=== PATIENT | female | born 1965 | race Caucasian/White ===

== ENCOUNTER 2019-10-23 11:51 | Observation (INO) | payer MEDICARE ==
[~2019-10-23] VITALS: Ht 172.7 cm; Wt 99.6 kg
[~2019-10-23 11:51] MED LIST: AMPH1CAP5 PO; CLON2TAB7 PO; DULO1CAP6 PO; LITH300T2 PO; OXCA300T14; REME15TA2 PO; VALS160T2
[2019-10-23] MEDS ORDERED: NS 1,000 ML IV ONE (12:30)
[2019-10-23 13:13] LABS: BASO # 0.1 10^3/uL (0.0-0.2); BASO % 0.6 % (0.0-1.0); EOS # 0.2 10^3/uL (0.0-0.5); EOS % 2.6 % (0.0-3.0); HEMOGLOBIN 13.5 g/dl (12.0-15.5); LYMPH # 1.8 10^3/uL (1.5-5.0); LYMPH % 19.5 % (24.0-44.0); MEAN CORPUSCULAR HEMOGLOBIN 33.1 pg (27.0-33.0); MEAN CORPUSCULAR HGB CONC 33.8 g/dl (32.0-36.5); MONO # 0.6 10^3/uL (0.0-0.8); MONO % 6.6 % (0.0-5.0); NEUTROPHILS # 6.5 10^3/uL (1.5-8.5); NEUTROPHILS % 70.1 % (36.0-66.0); PLATELET COUNT, AUTOMATED 295 10^3/uL (150-450); RED BLOOD COUNT 4.08 10^6/uL (4.00-5.40); WHITE BLOOD COUNT 9.3 10^3/uL (4.0-10.0)
--- NOTE | 2019-10-23 13:56 | REP ---
CT BRAIN WITHOUT CONTRAST: HISTORY: Altered mental status. No comparison imaging. FINDINGS: Digital preliminary tire repairman radiograph is unremarkable. The bony calvarium is intact. Visualized paranasal sinuses are clear. On soft tissue window settings there is no evidence of intracranial hemorrhage. No acute infarction is appreciated. No mass or midline shift is seen. IMPRESSION: No acute intracranial abnormality. Electronically Signed by Jorden Contreras MD 10/23/2019 02:52 P
[2019-10-23 14:53] LABS: OSMOLALITY SERUM 293 MOSM/KG (275-295)
[2019-10-23 15:00] LABS: ACETAMINOPHEN LEVEL < 2.0 UG/ML (10.0-30.0); ALBUMIN 3.5 GM/DL (3.2-5.2); ALT/SGPT 48 U/L (12-78); BILIRUBIN,DIRECT < 0.1 MG/DL (0.0-0.2); BILIRUBIN,TOTAL 0.2 MG/DL (0.2-1.0); BLOOD UREA NITROGEN 9 MG/DL (7-18); CALCIUM LEVEL 8.7 MG/DL (8.5-10.1); CARBON DIOXIDE LEVEL 28 MEQ/L (21-32); CHLORIDE LEVEL 108 MEQ/L (98-107); CK-MB VALUE MASS 1.5 NG/ML (<3.6); CPK CREATINE PHOSPHOKINASE 317 U/L (26-192); CREATININE FOR GFR 0.78 MG/DL (0.55-1.30); ETHYL ALCOHOL (ETHANOL) < 0.003 % (0.000-0.010); GLOMERULAR FILTRATION RATE > 60.0 (>51); GLUCOSE, FASTING 81 MG/DL (70-100); MB/CK RELATIVE INDEX 0.47 (< OR =4); POTASSIUM SERUM 3.9 MEQ/L (3.5-5.1); SALICYLATE LEVEL < 1.7 MG/DL (5.0-30.0); SODIUM LEVEL 139 MEQ/L (136-145); TOTAL PROTEIN 6.8 GM/DL (6.4-8.2); TROPONIN I < 0.02 NG/ML (< 0.10)
[2019-10-23 16:17] LABS: AMPHETAMINES LEVEL URINE POSITIVE (NEGATIVE); BARBITURATES URINE NEGATIVE (NEGATIVE); BENZODIAZEPINES URINE NEGATIVE (NEGATIVE); CANNABINOIDS URINE NEGATIVE (NEGATIVE); COCAINE METABOLITE URINE NEGATIVE (NEGATIVE); METHADONE URINE NEGATIVE (NEGATIVE); OPIATES URINE NEGATIVE (NEGATIVE); PHENCYCLIDINE URINE NEGATIVE (NEGATIVE)
[2019-10-23] MEDS ORDERED: TRAZ-252 PO (16:29)
[2019-10-23] MEDS ORDERED: ADDE30CA3 PO (16:29)
[2019-10-23] MEDS ORDERED: DIOV320T6 PO (16:29)
[2019-10-23] MEDS ORDERED: cefTRIAXone SOD 2 GM in D5W MINI-BAG PLUS 50 ML IV ONE ×2 (17:00)
[2019-10-23] MEDS ORDERED: cefTRIAXone SOD 2 GM in D5W MINI-BAG PLUS 50 ML IV SCH (17:00)
[2019-10-23 17:50] VITALS: BP 162/119
[2019-10-23] MEDS: ENOXAPARIN 40MG/0.4ML SYRINGE (J1650 PER 10MG) SC SCH (18:32)
--- NOTE | 2019-10-23 19:42 | HPEPDOC ---
[facility] Medical History & Physical Date of Admission Oct 23, 2019 Date of Service: Oct 23, 2019 Attending Physician: DIONTE BLACKMAN MD History and Physical CHIEF COMPLAINT: Dizziness HISTORY OF PRESENT ILLNESS: 54 y.o female w/ PMH of Bipolar disorder, multiple suicide attempts and HTN presents with dizziness & difficulty with word finding. Patient was sent her by her Psychiatrist whom she saw earlier today and informed of her symptoms. She has been having these symptoms for roughly 8 weeks, without change and intermittent. She is currently asymptomatic at the time of my examination. She reports speech issues concerning for possible broca's aphasia but she has contradicted herself multiple times during my examination which suggests possible psychiatric component. She reports that her dizziness makes her "roll across the wall". She is unable to explain what she means by that and has no other way of describing her symptom. She is otherwise without complaints, denies SOB, CP, N/V/D or abdominal pain. 10 point review of system is negative except for above. PAST MEDICAL HISTORY: 1. Bipolar disorder 2. Suicide attempt x3 3. HTN PAST SURGICAL HISTORY: 1. b/l ovaries & fallopian tube removal SOCIAL HISTORY: never smoker previous alcohol use denies drug use FAMILY HISTORY: Father had DM ALLERGIES: Please see below. HOME MEDICATIONS: Please see below. PHYSICAL EXAMINATION: VITAL SIGNS: See below GENERAL APPEARANCE: No distress HEENT: Moist mucus membranes CARDIOVASCULAR: S1, S2, no murmurs LUNGS: clear to auscultation ABDOMEN: soft, non-tender, non-distended, +BS EXTREMITIES: ROM intact NEUROLOGICAL: No focal deficits appreciated PSYCHIATRIC: Calm LABORATORY DATA: See below. IMAGING: CT head negative for acute pathology MICROBIOLOGY: Please see below. ASSESSMENT: 54 y.o female w/ significant psychiatric history presenting with vague/bizarre symptoms being admitted for UTI & r/o neurological pathology. PLAN: 1. Dizziness/difficulty word finding/bizarre behavior - based on history & presentation I believe this is mostly related to her psychiatric history, CT head negative, will check MRI brain. 2. Possible UTI - ?symptoms related to UTI, ceftriaxone, culture pending. 3. HTN - continue Valsartan & HCTZ 4. Bipolar disorder - continue home regimen 5. ADHD - continue Adderall DVT Prophylaxis - Lovenox GI prophylaxis - not needed Vital Signs Vital Signs Date Time Temp Pulse Resp B/P (MAP) Pulse Ox O2 Delivery O2 Flow Rate FiO2 10/23/19 17:50 97.6 91 18 162/119 (133) 99 Room Air Laboratory Data Labs 24H Laboratory Tests 2 10/23/19 12:29: Urine Color KADE, Urine Appearance TURBIDH, Urine pH 7.0, Urine Specific [place] 1.015, Urine Protein 1+H, Urine Glucose (UA) NEGATIVE, Urine Ketones NEGATIVE, Urine Blood 1+H, Urine Nitrite POSITIVEH, Urine Bilirubin NEGATIVE, Urine Urobilinogen 4.0H, Urine Leukocyte Esterase 2+H, Urine WBC (Auto) TNTCH, Urine RBC (Auto) 8H, Urine Hyaline Casts (Auto) 0, Urine Bacteria (Auto) 2+H, Urine Squamous Epithelial Cells 71, Urine Renal Epithelial Cells 2, Urine Mucus (Auto) LARGE, Urine Sperm (Auto) 10/23/19 12:33: Urine Opiates Screen NEGATIVE, Urine Methadone Screen NEGATIVE, Urine Barbiturates Screen NEGATIVE, Urine Phencyclidine Screen NEGATIVE, Urine Amphetamines Screen POSITIVEH, Urine Benzodiazepines Screen NEGATIVE, Urine Cocaine Metabolite Screen NEGATIVE, Urine Cannabinoids Screen NEGATIVE 10/23/19 12:43: Immature Granulocyte % (Auto) 0.6, Neutrophils (%) (Auto) 70.1H, Lymphocytes (%) (Auto) 19.5L, Monocytes (%) (Auto) 6.6H, Eosinophils (%) (Auto) 2.6, Basophils (%) (Auto) 0.6, Neutrophils # (Auto) 6.5, Lymphocytes # (Auto) 1.8, Monocytes # (Auto) 0.6, Eosinophils # (Auto) 0.2, Basophils # (Auto) 0.1, Nucleated Red Blood Cells % (auto) 0.0, Lactic Acid Level 1.9, Ammonia 32 10/23/19 14:18: Anion Gap 3L, Glomerular Filtration Rate > 60.0, Osmolality 293, Calcium Level 8.7, Total Bilirubin 0.2, Direct Bilirubin < 0.1, Aspartate Amino Transf (AST/SGOT) 30, Alanine Aminotransferase (ALT/SGPT) 48, Alkaline Phosphatase 109, Total Creatine Kinase 317H, Creatine Kinase MB 1.5, Creatine Kinase MB Relative Index 0.47, Troponin I < 0.02, Total Protein 6.8, Albumin 3.5, Albumin/Globulin Ratio 1.06, Thyroid Stimulating Hormone (TSH) 2.480, Salicylates Level < 1.7L, Acetaminophen Level < 2.0L, [place] Level 0.70, Ethyl Alcohol Level < 0.003 CBC/BMP Laboratory Tests 10/23/19 12:43 10/23/19 14:18 Microbiology Microbiology 10/23/19 Urine Culture, Received Pending Home Medications Scheduled Clonazepam (Clonazepam) 2 Mg Tablet, 2 MG PO QHS Dextroamphetamine/Amphetamine (Adderall Xr 30 mg Capsule) 30 Mg Cap.er.24h, 30 MG PO DAILY Duloxetine Hcl (Duloxetine HCl) 60 Mg Capsule.dr, 120 MG PO DAILY [place] Carbonate ([place] Carbonate) 300 Mg Tablet, 300 MG PO BID Trazodone HCl (Trazodone HCl) 50 Mg Tablet, 100 MG PO QHS Valsartan/Hydrochlorothiazide (Diovan Hct 320-25 mg Tablet) 1 Each Tablet, 1 TAB PO DAILY Allergies Coded Allergies: No Known Allergies (Unverified , 05/30/19) A-FIB/CHADSVASC A-FIB History Current/History of A-Fib/PAF?: No DIONTE BLACKMAN MD Oct 23, 2019 19:42
[2019-10-23] MEDS: traZODone 50 MG TAB PO SCH (20:43)
[2019-10-23] MEDS: clonazePAM 1 MG TAB PO SCH (20:43)
[2019-10-23] MEDS: LITHIUM CARBONATE 300 MG CAP PO SCH (20:43)
[2019-10-23 22:00] VITALS: BP 148/106
--- NOTE | 2019-10-23 22:00 | REPVR ---
PROCEDURE INFORMATION: Exam: MR Head Without Contrast Exam date and time: 10/23/2019 7:43 PM Age: 54 years old Clinical indication: Altered mental status/memory loss and dizziness; Other: Transient alertness; Additional info: Dizziness/difficulty with word finding TECHNIQUE: Imaging protocol: MR of the head without contrast. COMPARISON: CT Head without contrast 10/23/2019 12:35 PM FINDINGS: Brain: There is a small subtle focus of restricted diffusion with associated increased T2 and FLAIR signal in the periventricular white matter adjacent to the atrium of the right lateral ventricle and in the subcortical white matter of the posterior aspect of the right superior temporal gyrus, which is compatible with an acute or subacute infarct (images 18-19 of the axial DWI series 304). There is no intracranial hemorrhage, mass, mass effect, or herniation. The basal ganglia, thalami, and cerebellum are normal in appearance. Brainstem: Normal. Midline shift: There is no midline shift. Ventricles: Normal. No ventriculomegaly. Bones/joints: Unremarkable. Soft tissues: Unremarkable. Sinuses: The sinuses are well-aerated. No air-fluid levels. Mastoid air cells: The mastoid air cells are well-aerated. No mastoid effusion. Orbits: Unremarkable. IMPRESSION: Acute or subacute infarct involving the periventricular white matter adjacent to the atrium of the right lateral ventricle and in the subcortical white matter of the posterior aspect of the right superior temporal gyrus. Electronically signed by: Genaro Reinoso On 10/23/2019 21:59:47 PM
--- NOTE | 2019-10-23 22:13 | IPNPDOC ---
Text Note Date of Service The patient was seen on 10/23/19. NOTE I was informed by by phone that this patient has a subacute CVA w/o h emorrhage and is likely out of the tPA window. Per 's note the patient has been feeling dizzy for about 8 weeks. I will order the stroke order set including telemetry, ASA, PT OT SPL, neuroch ecks, lipid panel A1C, and inform Dr Lundberg that we have placed a consult for him to evaluate the patient tomorrow. VS,Fishbone, I+O VS, Fishbone, I+O Laboratory Tests 10/23/19 12:43 10/23/19 14:18 Vital Signs Date Time Temp Pulse Resp B/P (MAP) Pulse Ox O2 Delivery O2 Flow Rate FiO2 10/23/19 17:50 97.6 91 18 162/119 (133) 99 Room Air KENYA BETH MD Oct 23, 2019 22:13
[2019-10-23] MEDS ORDERED: ASPIRIN 81 MG CHEW TABLET PO ONE (23:00)
[2019-10-23] MEDS: ATORVASTATIN 20 MG TAB PO SCH (23:01)
[2019-10-23] MEDS: ACETAMINOPHEN TAB 650MG DOSE (2X325MG) PO PRN (23:01)
[2019-10-24] MEDS: ACETAMINOPHEN TAB 650MG DOSE (2X325MG) PO PRN ×3 (03:29→20:20)
[2019-10-24 05:40] VITALS: BP 148/100
[2019-10-24 05:59] LABS: HEMATOCRIT 37.3 % (36.0-47.0); HEMOGLOBIN 12.6 g/dl (12.0-15.5); MEAN CORPUSCULAR HEMOGLOBIN 32.7 pg (27.0-33.0); MEAN CORPUSCULAR HGB CONC 33.8 g/dl (32.0-36.5); MEAN CORPUSCULAR VOLUME 96.9 fl (80.0-96.0); PLATELET COUNT, AUTOMATED 271 10^3/uL (150-450); RED BLOOD COUNT 3.85 10^6/uL (4.00-5.40); WHITE BLOOD COUNT 9.3 10^3/uL (4.0-10.0)
[2019-10-24 06:23] LABS: HEMOGLOBIN A1c 5.4 %
[2019-10-24 06:34] LABS: ALBUMIN 3.2 GM/DL (3.2-5.2); ALT/SGPT 40 U/L (12-78); BILIRUBIN,TOTAL 0.4 MG/DL (0.2-1.0); BLOOD UREA NITROGEN 9 MG/DL (7-18); CALCIUM LEVEL 8.5 MG/DL (8.5-10.1); CARBON DIOXIDE LEVEL 27 MEQ/L (21-32); CHLORIDE LEVEL 109 MEQ/L (98-107); CHOLESTEROL LEVEL 184 MG/DL (<200); CREATININE FOR GFR 0.91 MG/DL (0.55-1.30); GLOMERULAR FILTRATION RATE > 60.0 (>51); GLUCOSE, FASTING 101 MG/DL (70-100); HDL CHOLESTEROL 32 MG/DL (>40); LDL CHOLESTEROL 105 MG/DL (<100); NON-HDL-C 152 MG/DL; POTASSIUM SERUM 3.5 MEQ/L (3.5-5.1); SODIUM LEVEL 139 MEQ/L (136-145); TRIGLYCERIDES LEVEL 236 MG/DL (<150)
[2019-10-24] MEDS: hydroCHLOROthiazide 25 MG TAB PO SCH (08:38)
[2019-10-24] MEDS: VALSARTAN 80 MG TAB (DIOVAN) PO SCH (08:38)
[2019-10-24] MEDS: LITHIUM CARBONATE 300 MG CAP PO SCH ×2 (08:38→20:19)
[2019-10-24] MEDS: DULoxetine 30 MG CAP (CYMBALTA) PO SCH (08:38)
[2019-10-24] MEDS: cefTRIAXone SOD 2 GM in D5W MINI-BAG PLUS 50 ML IV SCH (08:39)
[2019-10-24] MEDS: ASPIRIN 81 MG CHEW TABLET PO SCH (08:39)
[2019-10-24] MEDS: ENOXAPARIN 40MG/0.4ML SYRINGE (J1650 PER 10MG) SC SCH (08:39)
[2019-10-24] MEDS ORDERED: AMPHETAMINE/DEXTROAMPHETAMINE 5 MG *ER* CAPSULE (ADDERALL XR) PO SCH (09:00)
--- NOTE | 2019-10-24 10:29 | ECGEPIP ---
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
[2019-10-24 14:00] VITALS: BP 155/105
--- NOTE | 2019-10-24 19:15 | ECHO ---
DATE OF PROCEDURE: 10/24/2019 AGE: 54 GENDER: Female HEIGHT: 68 inches WEIGHT: 220 pounds BODY SURFACE AREA: 2.13 m2 PATIENT LOCATION: Inpatient, [address] [place] [address], room 4231 REFERRING PHYSICIAN: Dr. Alexa Combs. INDICATION: Cerebrovascular accident. ? Cardiac source of embolic material. 2-D MEASUREMENTS: RV: 2.3 cm LV: 4.7 cm Septum: 1.1 cm Posterior wall: 1.1 cm Aortic root: 3.2 cm LA: 3.4 cm LVEF: 75% DOPPLER MEASUREMENTS: AV: 1.34 m/s LVOT: 1.01 m/s LVOT diameter: 1.8 cm MV-E: 88, A: 102, EA ratio: 0.9 Early mitral deceleration time: 151 ms E prime medial: 7 A prime medial: 10 E prime lateral: 9.3 Average E/E prime ratio: 10.8/PCWP: 15.3 mmHg PV: 0.8 m/s Pulmonary artery acceleration time: 137 PASP: 17 RVSP: 30 mmHg IVC: 1.7 cm COMMENTS Normal sinus rhythm without intraventricular conduction disturbance. M-mode and two-dimensional echocardiography was performed with pulsed, continuous wave, color flow and tissue Doppler studies. Normal left ventricular size, wall thickness and hyperkinetic wall motion. Left atrial size upper limits of normal with grade 2 LV diastolic dysfunction and current estimated mean left atrial pressure upper limits of normal to slightly elevated. Normal right heart chamber sizes and motion with Doppler evidence of pulmonary arterial pressure upper limits of normal to borderline increased. Normal IVC size and collapse against an elevated central venous pressure. Normal aortic dimensions. Normal-appearing aortic valve with normal cusp separation and a trace aortic insufficiency. Normal-appearing mitral valvular apparatus and leaflet excursion with no posterior systolic buckling. Mild mitral insufficiency. Normal appearing tricuspid valve with mild insufficiency. No apparent intracardiac mass or pericardial effusion. A saline contrast bubble study was performed with good opacification of the right heart chambers without evidence of right to left shunting.
[2019-10-24] MEDS: traZODone 50 MG TAB PO SCH (20:19)
[2019-10-24] MEDS: ATORVASTATIN 20 MG TAB PO SCH (20:19)
[2019-10-24] MEDS: clonazePAM 1 MG TAB PO SCH (20:19)
--- NOTE | 2019-10-24 21:10 | IPNPDOC ---
Date Seen The patient was seen on 10/24/19. Progress Note HISTORY OF PRESENT ILLNESS: 54 y.o female w/ PMH of Bipolar disorder, multiple suicide attempts and HTN presents with dizziness & difficulty with word finding. MRI overnight showed acute/subacute CVA in R periventricular white matter. No acute events overnight, comfortable in bed, no complaints at this time. 10 point review of system is negative except for above. PHYSICAL EXAMINATION: VITAL SIGNS: See below GENERAL APPEARANCE: No distress HEENT: Moist mucus membranes CARDIOVASCULAR: S1, S2, no murmurs LUNGS: clear to auscultation ABDOMEN: soft, non-tender, non-distended, +BS EXTREMITIES: ROM intact NEUROLOGICAL: No focal deficits appreciated, continues to have difficulty w/ word finding PSYCHIATRIC: Calm LABORATORY DATA: See below. ASSESSMENT: 54 y.o female w/ significant psychiatric history presenting with vague/bizarre symptoms admitted for CVA. PLAN: 1. CVA: MRI showing acute/subacute CVA in the R periventricular white matter, continue Aspirin/statin/PT/OT, CVA workup has been ordered. 2. Possible UTI - continue ceftriaxone, culture pending. 3. HTN - continue Valsartan & HCTZ 4. Bipolar disorder - continue home regimen DVT Prophylaxis - Lovenox GI prophylaxis - not needed VS, I&O, 24H, Fishbone Vital Signs/I&O Vital Signs Date Time Temp Pulse Resp B/P (MAP) Pulse Ox O2 Delivery O2 Flow Rate FiO2 10/24/19 14:00 99.4 102 18 155/105 (122) 96 Room Air I&O- Last 24 Hours up to 6 AM0 10/24/19 06:00 Intake Total 1710 ml Output Total 650 ml Balance 1060 ml Laboratory Data 24H LABS Laboratory Tests 2 10/24/19 05:20: Nucleated Red Blood Cells % (auto) 0.0, Anion Gap 3L, Glomerular Filtration Rate > 60.0, Estimated Mean Plasma Glucose 108, Hemoglobin A1c 5.4, Calcium Level 8.5, Magnesium Level 2.0, Total Bilirubin 0.4#, Aspartate Amino Transf (AST/SGOT) 26, Alanine Aminotransferase (ALT/SGPT) 40, Alkaline Phosphatase 96, Total Protein 6.0L, Albumin 3.2, Albumin/Globulin Ratio 1.14, Triglycerides Level 236H, Total Cholesterol 184, LDL Cholesterol 105H, Non-HDL Cholesterol (LDL + VLDL) 152, Total HDL Cholesterol 32L, Cholesterol/HDL Ratio 5.750H CBC/BMP Laboratory Tests 10/24/19 05:20 Microbiology Microbiology 10/23/19 Urine Culture, Received Pending DIONTE BLACKMAN MD Oct 24, 2019 21:10
[2019-10-24] MEDS ORDERED: POTASSIUM CHLORIDE 10 MEQ SR TABLET PO ONE (21:15)
[2019-10-25 02:00] VITALS: BP 136/74
[2019-10-25 06:00] VITALS: BP 126/85
[2019-10-25 08:50] VITALS: BP 144/97
[2019-10-25] MEDS: VALSARTAN 80 MG TAB (DIOVAN) PO SCH (08:50)
[2019-10-25] MEDS: hydroCHLOROthiazide 25 MG TAB PO SCH (08:51)
[2019-10-25] MEDS: ASPIRIN 81 MG CHEW TABLET PO SCH (08:51)
[2019-10-25] MEDS: DULoxetine 30 MG CAP (CYMBALTA) PO SCH (08:51)
[2019-10-25] MEDS: LITHIUM CARBONATE 300 MG CAP PO SCH (08:51)
[2019-10-25] MEDS: ENOXAPARIN 40MG/0.4ML SYRINGE (J1650 PER 10MG) SC SCH (08:52)
[2019-10-25] MEDS: cefTRIAXone SOD 2 GM in D5W MINI-BAG PLUS 50 ML IV SCH (08:52)
[2019-10-25] MEDS ORDERED: ATOR40TA75 PO (11:19)
[2019-10-25] MEDS ORDERED: ASPI81CH8 PO (11:19)
[2019-10-25] MEDS ORDERED: ATORVASTATIN 20 MG TAB PO SCH (21:00)
--- NOTE | 2019-10-26 15:57 | DS.PDOC ---
Discharge Summary General Date of Admission Oct 23, 2019 at 11:52 Date of Discharge 10/25/19 Attending Physician: DIONTE BLACKMAN MD Discharge Summary PROCEDURES PERFORMED DURING STAY: None. ADMITTING DIAGNOSES: 1. Acute/subacute CVA, hypertension. DISCHARGE DIAGNOSES: 1. Acute/subacute CVA, hypertension. COMPLICATIONS/CHIEF COMPLAINT: Altered Mental Status. HISTORY OF PRESENT ILLNESS: 54-year-old female with past medical history of hypertension and multiple psychiatric illnesses was admitted for dizziness and difficulty with word finding. MRI showed acute/subacute CVA in the periventricular white matter. Patient was started on aspirin and high-dose statin. Remainder of CVA workup was negative. Patient was evaluated by physical therapy and cleared for discharge home. Patient is clinically stable for discharge at this time. HOSPITAL COURSE: As above. DISCHARGE MEDICATIONS: Please see below. ALLERGIES: Please see below. PHYSICAL EXAMINATION: VITAL SIGNS: See below GENERAL APPEARANCE: No distress HEENT: Moist mucus membranes CARDIOVASCULAR: S1, S2, no murmurs LUNGS: clear to auscultation ABDOMEN: soft, non-tender, non-distended, +BS EXTREMITIES: ROM intact NEUROLOGICAL: No focal deficits appreciated, continues to have difficulty w/ word finding PSYCHIATRIC: Calm LABORATORY DATA: Please see below. IMAGING: MRI showed acute/subacute periventricular CVA PROGNOSIS: Fair ACTIVITY: As tolerated. DIET: Cardiac DISCHARGE PLAN: Follow with PCP and neurologist within 1-2 weeks DISPOSITION: 01 Home, Self-Care. DISCHARGE INSTRUCTIONS: 1. As above. DISCHARGE CONDITION: Stable. TIME SPENT ON DISCHARGE: Greater than 25 minutes. Vital Signs/I&Os Vital Signs Date Time Temp Pulse Resp B/P (MAP) Pulse Ox O2 Delivery O2 Flow Rate FiO2 10/25/19 08:50 144/97 10/25/19 06:00 98.0 76 18 93 Room Air I&O- Last 24 Hours up to 6 AM 10/26/19 06:00 Intake Total 600 ml Output Total 650 ml Balance -50 ml Microbiology Microbiology 10/23/19 Urine Culture - Final, Complete Strep Alactolyticus (Viridans) Discharge Medications Scheduled Aspirin (Children's Aspirin) 81 Mg Tab.chew, 81 MG PO DAILY Atorvastatin Calcium (Atorvastatin Calcium) 40 Mg Tablet, 1 TAB PO DAILY Clonazepam (Clonazepam) 2 Mg Tablet, 2 MG PO QHS, (Reported) Duloxetine Hcl (Duloxetine HCl) 60 Mg Capsule.dr, 120 MG PO DAILY, (Reported) [place] Carbonate ([place] Carbonate) 300 Mg Tablet, 300 MG PO BID, (Reported) Trazodone HCl (Trazodone HCl) 50 Mg Tablet, 100 MG PO QHS, (Reported) Valsartan/Hydrochlorothiazide (Diovan Hct 320-25 mg Tablet) 1 Each Tablet, 1 TAB PO DAILY, (Reported) Allergies Coded Allergies: No Known Allergies (Unverified , 05/30/19) DIONTE BLACKMAN MD Oct 26, 2019 15:57
== END 2019-10-25 13:13 | disposition home or self-care (01) ==
LOC: M ED 11:51 → M ED INP 11:52 → ENRESERV 17:05 → M MSPAV 17:55
PROVIDERS: ADMIT Internal Medicine; ATTEND Internal Medicine
DX: I63.9 Cerebral infarction, unspecified (principal); N39.0 Urinary tract infection, site not specified; I10 Essential (primary) hypertension; F31.9 Bipolar disorder, unspecified; F90.9 Attention-deficit hyperactivity disorder, unspecified type; R42 Dizziness and giddiness; Z79.899 Other long term (current) drug therapy
CPT/HCPCS: 36415; 70450; 70551; 80048; 80053; 80061; 80076; 80178; 80183; 80307; 81001; 82140; 82550; 82553; 83036; 83605; 83735; 83930; 84443; 84484; 85025; 85027; 87088; 87186; 92507; 92523; 93005; 93041; 93306; 94760; 96361; 96365; 96366; 96372; 97116; 97161; 97165; 97530; 97535; 99285; G0378; G0480; J0696; J1650

== ENCOUNTER 2019-11-30 13:15 | Observation (INO) | payer MEDICARE ==
[~2019-11-30] VITALS: Ht 172.7 cm; Wt 93.8 kg
[~2019-11-30 13:15] MED LIST changes: +ADDE30CA3 PO; +ASPI81CH8 PO; +ATOR40TA75 PO; +DIOV320T6 PO; +TRAZ-252 PO
[2019-11-30 14:55] LABS: HEMATOCRIT 41.5 % (36.0-47.0); HEMOGLOBIN 13.7 g/dl (12.0-15.5); MEAN CORPUSCULAR HEMOGLOBIN 32.3 pg (27.0-33.0); MEAN CORPUSCULAR VOLUME 97.9 fl (80.0-96.0); PLATELET COUNT, AUTOMATED 317 10^3/uL (150-450); RED BLOOD COUNT 4.24 10^6/uL (4.00-5.40); WHITE BLOOD COUNT 12.8 10^3/uL (4.0-10.0)
[2019-11-30] MEDS ORDERED: hydrALAZINE 20MG/ML 1ML VIAL (J0360 PER 20MG) IV ONE (15:00)
--- NOTE | 2019-11-30 15:13 | REP ---
CT BRAIN WITHOUT CONTRAST: HISTORY: Altered mental status. Comparison brain MRI study, October 23, 2019. Comparison CT study of the brain is from October 23, [address] FINDINGS: Filler Blender view is unremarkable. The bony calvarium remains intact. Visualized paranasal sinuses are clear. There is minimal vascular calcification in the left internal carotid artery at the skull base. On soft tissue window settings, there is no evidence of intracranial hemorrhage. No acute infarct is apparent by CT. No extra-axial fluid collection, mass, or midline shift is seen. IMPRESSION: No acute intracranial abnormality seen. No change from October 23, 2019 prior study. Electronically Signed by Jorden Contreras MD 11/30/2019 05:10 P
[2019-11-30 15:25] LABS: AMPHETAMINES LEVEL URINE NEGATIVE (NEGATIVE); BARBITURATES URINE NEGATIVE (NEGATIVE); BENZODIAZEPINES URINE NEGATIVE (NEGATIVE); CANNABINOIDS URINE NEGATIVE (NEGATIVE); COCAINE METABOLITE URINE NEGATIVE (NEGATIVE); METHADONE URINE NEGATIVE (NEGATIVE); OPIATES URINE NEGATIVE (NEGATIVE); PHENCYCLIDINE URINE NEGATIVE (NEGATIVE)
[2019-11-30 15:49] LABS: ACETAMINOPHEN LEVEL < 2.0 UG/ML (10.0-30.0); ALBUMIN 4.2 GM/DL (3.2-5.2); ALT/SGPT 65 U/L (12-78); BILIRUBIN,DIRECT 0.2 MG/DL (0.0-0.2); BILIRUBIN,TOTAL 0.7 MG/DL (0.2-1.0); BLOOD UREA NITROGEN 10 MG/DL (7-18); CARBON DIOXIDE LEVEL 27 MEQ/L (21-32); CHLORIDE LEVEL 102 MEQ/L (98-107); CPK CREATINE PHOSPHOKINASE 82 U/L (26-192); CREATININE FOR GFR 0.99 MG/DL (0.55-1.30); ETHYL ALCOHOL (ETHANOL) < 0.003 % (0.000-0.010); GLOMERULAR FILTRATION RATE > 60.0 (>51); GLUCOSE, FASTING 104 MG/DL (70-100); POTASSIUM SERUM 3.6 MEQ/L (3.5-5.1); SALICYLATE LEVEL < 1.7 MG/DL (5.0-30.0); SODIUM LEVEL 138 MEQ/L (136-145); TOTAL PROTEIN 7.9 GM/DL (6.4-8.2)
[2019-11-30] MEDS ORDERED: HALOPERIDOL 5MG/ML VIAL (J1630 PER 1) IV PRN (18:00)
[2019-11-30] MEDS ORDERED: LORazepam 2 MG/ML VIAL (J2060) IV PRN (18:00)
[2019-11-30] MEDS ORDERED: MAALOX 30 ML SUSP *UDC PO PRN (18:00)
[2019-11-30] MEDS ORDERED: MOM 30ML SUSPENSION UDC PO PRN (18:00)
--- NOTE | 2019-11-30 18:01 | HPEPDOC ---
General Date of Admission Date of Service: November 30, 2019 Chief Complaint The patient is a 54-year-old female admitted with a reason for visit of MHE. Source: Patient Exam Limitations: Other (altered mental status) Timing/Duration: Other (, unknown) Severity: Other (, unknown) Associated Symptoms: Other (my relatives are laughing at me, had a horrible day, also saw shadows) History of Present Illness This is a 54 years old white female with past medical history of bipolar disorder, history of suicidal attempts in the past, hypertension, was brought in by her niece and drop in the ER. According to patient, she is been seeing visual hallucination-like shadows 3 times a day since last few days. Also of note is that her family was less than at her making fun of her and it hurt and she didn't had a good day, so she decided to come here. When directly asked, she is not suicidal, she is not homicidal. She is not agitated but she is very cooperative Home Medications Scheduled Aspirin (Children's Aspirin) 81 Mg Tab.chew, 81 MG PO DAILY Atorvastatin Calcium (Atorvastatin Calcium) 40 Mg Tablet, 1 TAB PO DAILY Clonazepam (Clonazepam) 2 Mg Tablet, 2 MG PO QHS, (Reported) Duloxetine Hcl (Duloxetine HCl) 60 Mg Capsule.dr, 120 MG PO DAILY, (Reported) [place] Carbonate ([place] Carbonate) 300 Mg Tablet, 300 MG PO BID, (Reported) Trazodone HCl (Trazodone HCl) 50 Mg Tablet, 100 MG PO QHS, (Reported) Valsartan/Hydrochlorothiazide (Diovan Hct 320-25 mg Tablet) 1 Each Tablet, 1 TAB PO DAILY, (Reported) Allergies Coded Allergies: No Known Allergies (Unverified , 05/30/19) Past Medical History Medical History Bipolar disorder, suicidal attempts 3. Hypertension Surgical History Bilateral ovaries and fallopian tube removal Family History Father had diabetes mellitus Social History * Smoker: Denies Alcohol: Denies Drugs: denies A-FIB/CHADSVASC A-FIB History Current/History of A-Fib/PAF?: No Review of Systems Constitutional: Reports: Other (emotionally hurt ,unable to explain her symptoms) Eyes: Denies: Pain, Vision change, Conjunctivae inflammation, Eyelid inflammation, Redness, Other ENT: Denies: Head Aches, Ear Pain, Dysphagia, Sinus Congestion, Post Nasal Drip, Sore Throat, Epistaxis, Other Symptoms Skin: Denies: Rash, Lesions, Jaundice, Bruising, Itching, Dry, Breakdown, Nail Changes, Other Pulmonary: Denies: Dyspnea, Cough, Pleuritic Chest Pain, Other Symptoms Cardiovascular: Denies: Chest Pain, Palpitations, Orthopnea, Paroxysmal Noc. Dyspnea, Edema, Lt Headedness, Other Symptoms Gastrointestinal: Denies: Nausea, Vomiting, Abdominal Pain, Diarrhea, Constipation, Melena, Hematochezia, Other Symptoms Genitourinary: Denies: Dysuria, Frequency, Incontinence, Hematuria, Retention, Other Symptoms Endocrine: Denies: Polydipsia, Polyphagia, Polyuria, Heat Intolerance, Cold Intolerance, Other Endocrine Sx Musculoskeletal: Denies: Neck Pain, Back Pain, Shoulder Pain, Arm Pain, Hand Pain, Leg Pain, Foot Pain, Joint Pain, Muscle Pain, Spasms, Other Symptoms Neurological: Denies: Weakness, Numbness, Incoordination, Change in speech, Confusion, Seizures, Other Symptoms Psych: Denies: Mood Normal, Anxiety, Depression, Memory Issues, Thoughts of Self Harm, Anger, Thoughts of Harming Other, Other Psych Physical Examination General Exam: Positive: Alert, Other (, oriented 2, flight of ideas noted) Eye Exam: Positive: PERRLA ENT Exam: Positive: Atraumatic, Mucous membr. moist/pink Neck Exam: Positive: Supple Chest Exam: Positive: Clear to auscultation, Normal air movement Heart Exam: Positive: Rate Normal, Normal S1, Normal S2 Abdomen Exam: Positive: Normal bowel sounds, Soft Extremity Exam: Positive: Normal pulses Skin Exam: Positive: Nl turgor and temperature Neuro Exam: Positive: Strength at 5/5 X4 ext, Cranial Nerves 3-12 NL Psych Exam: Positive: Mood NL Vital Signs Vital Signs Date Time Temp Pulse Resp B/P (MAP) Pulse Ox O2 Delivery O2 Flow Rate FiO2 11/30/19 17:45 98.2 92 18 144/76 (98) 100 Room Air Laboratory Data Labs 24H Laboratory Tests 2 11/30/19 14:15: Nucleated Red Blood Cells % (auto) 0.0, Anion Gap 9, Glomerular Filtration Rate > 60.0, Calcium Level 9.0, Total Bilirubin 0.7, Direct Bilirubin 0.2, Aspartate Amino Transf (AST/SGOT) 21, Alanine Aminotransferase (ALT/SGPT) 65, Alkaline Phosphatase 172H, Ammonia < 10, Total Creatine Kinase 82, Total Protein 7.9, Albumin 4.2, Albumin/Globulin Ratio 1.1L, Thyroid Stimulating Hormone (TSH) 2.700, Salicylates Level < 1.7L, Acetaminophen Level < 2.0L, [place] Level 0.67, Ethyl Alcohol Level < 0.003 11/30/19 14:16: Urine Opiates Screen NEGATIVE, Urine Methadone Screen NEGATIVE, Urine Barbiturates Screen NEGATIVE, Urine Phencyclidine Screen NEGATIVE, Urine Amphetamines Screen NEGATIVE, Urine Benzodiazepines Screen NEGATIVE, Urine Cocaine Metabolite Screen NEGATIVE, Urine Cannabinoids Screen NEGATIVE CBC/BMP Laboratory Tests 11/30/19 14:15 Problems (1) Altered mental status Status: Acute Problem Text: 54 years old lady, recently was admitted on 10/23/2019 when she was diagnosed with acute or subacute infarct and periventricular white matter adjacent to the atrium of fourth ventricle and subcortical white matter.at Right superior temporal gyrus. Patient also had echocardiogram done which was within normal limit with the EF of 75%. CT of the head essentially was negative on the first admission Patient presented again with altered mentation, visual hallucination, flight of ideas, most likely the altered mental status is probably secondary to her un ember control psychiatric conditions, but cannot rule out a second CVA, but according to patient, she is been taking her medicines regularly Admit patient to observation to medical floor with telemetry MRI of brain, MRA of brain and carotids Continue aspirin and Lipitor Continue All other home meds Ativan and Haldol when necessary for agitation One-to-one watch . We will request psychiatric consultation in a.m. if the MRIs are negative DVT prophylaxis with Lovenox Diet regular Activity as tolerated (2) Bipolar 1 disorder Status: Chronic Problem Text: Will continue all her psych meds And will request psych consultation in a.m. (3) Hypertension Status: Acute Problem Text: Continue home meds Plan / VTE VTE Prophylaxis Ordered?: Yes SAIDA JONES MD November 30, 2019 18:01
--- NOTE | 2019-11-30 19:56 | REPVR ---
PROCEDURE INFORMATION: Exam: MR Angiography Neck Without Contrast Exam date and time: 11/30/2019 7:51 PM Age: 54 years old Clinical indication: Other: AMS; Additional info: CVA TECHNIQUE: Imaging protocol: Magnetic resonance angiography of the neck without contrast. 3D rendering: MIP and/or 3D reconstructed images were created by the technologist. COMPARISON: No relevant prior studies available. FINDINGS: Right common carotid artery: No significant stenosis or occlusion. Right internal carotid artery: Extracranial segment is patent without evidence of hemodynamically significant stenosis. Right external carotid artery: Unremarkable. Right vertebral artery: No significant stenosis or occlusion. Left common carotid artery: No significant stenosis or occlusion. Left internal carotid artery: Extracranial segment is patent without evidence of hemodynamically significant stenosis. Left external carotid artery: Unremarkable. Left vertebral artery: No significant stenosis or occlusion. IMPRESSION: No MRA evidence of occlusion or significant stenosis in the arteries of the neck. REFERENCES: NASCET CRITERIA. The degree of internal carotid artery stenosis is based on NASCET criteria. Normal is no stenosis. Mild is less than 50% stenosis. Moderate is 50-69% stenosis. Severe is 70% to 99% stenosis. Total occlusion is no detectable patent lumen. Electronically signed by: Steve Salcedo On 11/30/2019 19:56:12 PM
--- NOTE | 2019-11-30 19:57 | REPVR ---
PROCEDURE INFORMATION: Exam: MR Head Without Contrast Exam date and time: 11/30/2019 7:51 PM Age: 54 years old Clinical indication: Altered mental status/memory loss; Confusion or disorientation; Additional info: CVA TECHNIQUE: Imaging protocol: MR of the head without contrast. COMPARISON: MRI-Brain without Contrast 10/23/2019 9:02 PM FINDINGS: Brain: Few scattered nonspecific T2/FLAIR hyperintensities of the periventricular and deep subcortical white matter, most likely secondary to chronic small vessel ischemic change. No intracranial hemorrhage or extra-axial fluid collection. No evidence of mass effect or midline shift. No restricted diffusion to suggest acute infarct. Ventricles: No ventriculomegaly. Bones/joints: Unremarkable. Soft tissues: Unremarkable. Sinuses: Unremarkable. Mastoid air cells: No mastoid effusion. Orbits: Unremarkable. IMPRESSION: No acute intracranial pathology. Electronically signed by: Steve Salcedo On 11/30/2019 19:57:04 PM
--- NOTE | 2019-11-30 19:58 | REPVR ---
PROCEDURE INFORMATION: Exam: MR Angiogram Head Without Contrast, Arteries Exam date and time: 11/30/2019 7:51 PM Age: 54 years old Clinical indication: Cognitive deficit; Altered mental status; Additional info: CVA TECHNIQUE: Imaging protocol: MR angiogram head without contrast. Exam focused on the arteries. COMPARISON: MRI-Brain without Contrast 10/23/2019 9:02 PM FINDINGS: Anterior cerebral arteries: Intracranial segment is patent with no significant stenosis. No aneurysm. Right internal carotid artery: Intracranial segment is patent with no significant stenosis. No aneurysm. Right middle cerebral artery: No occlusion or significant stenosis. No aneurysm. Right posterior cerebral artery: Patent and predominantly type right posterior cerebral artery. No aneurysm. Right vertebral artery: No occlusion or significant stenosis. No aneurysm. Left internal carotid artery: Intracranial segment is patent with no significant stenosis. No aneurysm. Left middle cerebral artery: No occlusion or significant stenosis. No aneurysm. Left posterior cerebral artery: No occlusion or significant stenosis. No aneurysm. Left vertebral artery: No occlusion or significant stenosis. No aneurysm. Basilar artery: No occlusion or significant stenosis. No aneurysm. IMPRESSION: No MRA evidence of intracranial arterial occlusion or significant stenosis. Electronically signed by: Steve Salcedo On 11/30/2019 19:58:16 PM
[2019-11-30] MEDS ORDERED: ENOXAPARIN 40MG/0.4ML SYRINGE (J1650 PER 10MG) SC SCH (21:00)
[2019-11-30] MEDS ORDERED: traZODone 100 MG TAB PO SCH (21:00)
[2019-11-30] MEDS ORDERED: clonazePAM 1 MG TAB PO SCH (21:00)
--- NOTE | 2019-11-30 21:08 | ECGEPIP ---
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
[2019-11-30 21:21] VITALS: BP 136/92
[2019-11-30] MEDS: LITHIUM CARBONATE 300 MG CAP PO SCH (21:54)
[2019-11-30] MEDS: DOCUSATE SODIUM 100 MG CAP PO SCH (21:55)
[2019-12-01 06:00] VITALS: BP 139/87
[2019-12-01 06:17] LABS: HEMATOCRIT 38.3 % (36.0-47.0); HEMOGLOBIN 12.8 g/dl (12.0-15.5); MEAN CORPUSCULAR HEMOGLOBIN 32.7 pg (27.0-33.0); MEAN CORPUSCULAR HGB CONC 33.4 g/dl (32.0-36.5); MEAN CORPUSCULAR VOLUME 97.7 fl (80.0-96.0); PLATELET COUNT, AUTOMATED 280 10^3/uL (150-450); RED BLOOD COUNT 3.92 10^6/uL (4.00-5.40); WHITE BLOOD COUNT 10.3 10^3/uL (4.0-10.0)
[2019-12-01 06:49] LABS: ALBUMIN 3.6 GM/DL (3.2-5.2); ALT/SGPT 51 U/L (12-78); BILIRUBIN,TOTAL 0.9 MG/DL (0.2-1.0); BLOOD UREA NITROGEN 8 MG/DL (7-18); CALCIUM LEVEL 8.6 MG/DL (8.5-10.1); CARBON DIOXIDE LEVEL 25 MEQ/L (21-32); CHLORIDE LEVEL 106 MEQ/L (98-107); CREATININE FOR GFR 0.92 MG/DL (0.55-1.30); GLOMERULAR FILTRATION RATE > 60.0 (>51); GLUCOSE, FASTING 121 MG/DL (70-100); MAGNESIUM LEVEL 2.2 MG/DL (1.8-2.4); POTASSIUM SERUM 3.4 MEQ/L (3.5-5.1); SODIUM LEVEL 139 MEQ/L (136-145); TOTAL PROTEIN 6.9 GM/DL (6.4-8.2)
[2019-12-01 08:36] VITALS: BP 155/98
[2019-12-01] MEDS: LITHIUM CARBONATE 300 MG CAP PO SCH (08:36)
[2019-12-01] MEDS: DOCUSATE SODIUM 100 MG CAP PO SCH (08:36)
[2019-12-01] MEDS: ACETAMINOPHEN TAB 650MG DOSE (2X325MG) PO PRN ×2 (08:37→16:44)
[2019-12-01] MEDS ORDERED: ATORVASTATIN 20 MG TAB PO SCH (09:00)
[2019-12-01] MEDS ORDERED: VALSARTAN 80 MG TAB (DIOVAN) PO SCH (09:00)
[2019-12-01] MEDS ORDERED: DULoxetine 30 MG CAP (CYMBALTA) PO SCH (09:00)
[2019-12-01] MEDS ORDERED: ASPIRIN 81 MG ENTERIC TAB PO SCH (09:00)
[2019-12-01] MEDS ORDERED: POTASSIUM CHLORIDE 10 MEQ SR TABLET PO ONE (09:00)
--- NOTE | 2019-12-01 11:10 | IPNPDOC ---
Subjective Date Seen The patient was seen on 12/01/19. Subjective Chief Complaint/HPI Is comfortable in no distress. Offers no new complaints, feeling better today General: Denies: ROS Unobtainable, Chills, Night Sweats, Fatigue, Malaise, Normal Appetite, Other Symptoms Constitutional: Denies: Chills, Fever, Malaise, Night Sweats, Weakness, Fatigue, Weight Loss, Lethargy, Other Pulmonary: Denies: Dyspnea, Cough, Pleuritic Chest Pain, Other Symptoms Cardiovascular: Denies: Chest Pain, Palpitations, Orthopnea, Paroxysmal Noc. Dyspnea, Edema, Lt Headedness, Other Symptoms Gastrointestinal: Denies: Nausea, Vomiting, Abdominal Pain, Diarrhea, Constipation, Melena, Hematochezia, Other Symptoms Musculoskeletal: Denies: Neck Pain, Back Pain, Shoulder Pain, Arm Pain, Hand Pain, Leg Pain, Foot Pain, Joint Pain, Muscle Pain, Spasms, Other Symptoms Neurological: Denies: Weakness, Numbness, Incoordination, Change in speech, Confusion, Seizures, Other Symptoms Objective Physical Examination General Exam: Positive: Alert, Other (, oriented 2, flight of ideas noted) Eye Exam: Positive: PERRLA ENT Exam: Positive: Atraumatic, Mucous membr. moist/pink Neck Exam: Positive: Supple Chest Exam: Positive: Clear to auscultation, Normal air movement Heart Exam: Positive: Rate Normal, Normal S1, Normal S2 Abdomen Exam: Positive: Normal bowel sounds, Soft Extremity Exam: Positive: Normal pulses Skin Exam: Positive: Nl turgor and temperature Neuro Exam: Positive: Strength at 5/5 X4 ext, Cranial Nerves 3-12 NL Psych Exam: Positive: Mood NL Assessment /Plan Problems (1) Altered mental status Status: Acute Problem Text: 54 years old lady, recently was admitted on 10/23/2019 when she was diagnosed with acute or subacute infarct and periventricular white matter adjacent to the atrium of fourth ventricle and subcortical white matter.at Right superior temporal gyrus. Patient also had echocardiogram done which was within normal limit with the EF of 75%. CT of the head essentially was negative on the first admission MRI of brain, MRA of brain, MRA of carotid arteries bilaterally. All are essentially within normal limits and there is no evidence of old are any new infarct. Altered mental status most likely secondary to her uncontrolled psychiatric disease I spoke with Dr. Herrera for consultation, she does not think that patient needs inpatient admission, once cleared from psychiatry, then most likely will discharge home on all her current meds (2) Bipolar 1 disorder Status: Chronic Problem Text: Will continue all her psych meds Psych consult has been requested and will await further recommendations before discharge (3) Hypertension Status: Acute Problem Text: Under well control Continue home meds Plan/VTE VTE Prophylaxis Ordered?: Yes VS, I&O, 24H, Fishbone Vital Signs/I&O Vital Signs Date Time Temp Pulse Resp B/P (MAP) Pulse Ox O2 Delivery O2 Flow Rate FiO2 12/01/19 08:36 155/98 12/01/19 06:00 98.3 100 18 96 Room Air I&O- Last 24 Hours up to 6 AM 12/01/19 06:00 Intake Total 770 ml Output Total 550 ml Balance 220 ml Laboratory Data 24H LABS Laboratory Tests 2 11/30/19 14:15: Nucleated Red Blood Cells % (auto) 0.0, Anion Gap 9, Glomerular Filtration Rate > 60.0, Calcium Level 9.0, Total Bilirubin 0.7, Direct Bilirubin 0.2, Aspartate Amino Transf (AST/SGOT) 21, Alanine Aminotransferase (ALT/SGPT) 65, Alkaline Phosphatase 172H, Ammonia < 10, Total Creatine Kinase 82, Total Protein 7.9, Albumin 4.2, Albumin/Globulin Ratio 1.1L, Thyroid Stimulating Hormone (TSH) 2.700, Salicylates Level < 1.7L, Acetaminophen Level < 2.0L, [place] Level 0.67, Ethyl Alcohol Level < 0.003 11/30/19 14:16: Urine Opiates Screen NEGATIVE, Urine Methadone Screen NEGATIVE, Urine Barbiturates Screen NEGATIVE, Urine Phencyclidine Screen NEGATIVE, Urine Amphetamines Screen NEGATIVE, Urine Benzodiazepines Screen NEGATIVE, Urine Cocaine Metabolite Screen NEGATIVE, Urine Cannabinoids Screen NEGATIVE 12/01/19 06:01: Nucleated Red Blood Cells % (auto) 0.0, Anion Gap 8, Glomerular Filtration Rate > 60.0, Calcium Level 8.6, Total Bilirubin 0.9, Aspartate Amino Transf (AST/SGOT) 21, Alanine Aminotransferase (ALT/SGPT) 51, Alkaline Phosphatase 142H, Total Protein 6.9, Albumin 3.6, Albumin/Globulin Ratio 1.1L, Magnesium Level 2.2 CBC/BMP Laboratory Tests 5/15/20 14:15 12/01/19 06:01 SAIDA JONES MD December 01, 2019 11:10
[2019-12-01 14:00] VITALS: BP 153/107
--- NOTE | 2019-12-01 16:53 | DS.PDOC ---
Discharge Summary General Date of Admission November 30, 2019 at 13:16 Date of Discharge 12/01/19 Discharge Summary PROCEDURES PERFORMED DURING STAY: None. ADMITTING DIAGNOSES: 1. Altered mental status,. DISCHARGE DIAGNOSES: 1. Bipolar disorder, hypertension, hallucination. COMPLICATIONS/CHIEF COMPLAINT: Altered Mental Status. HISTORY OF PRESENT ILLNESS: This is a 54 years old white female with past medic al history of bipolar disorder, history of suicidal attempts in the past, hypertension, was brought in by her niece and drop in the ER. According to patient, she is been seeing visual hallucination-like shadows 3 times a day since last few days. Also of note is that her family was less than at her making fun of her and it hurt and she didn't had a good day, so she decided to come here. When directly asked, she is not suicidal, she is not homicidal. She is not agitated but she is very cooperative. HOSPITAL COURSE: 54 years old lady, recently was admitted on 10/23/2019 when she was diagnosed with acute or subacute infarct and periventricular white matter adjacent to the atrium of fourth ventricle and subcortical white matter.at Right superior temporal gyrus. Patient also had echocardiogram done which was within normal limit with the EF of 75%. CT of the head essentially was negative on the first admission MRI of brain, MRA of brain, MRA of carotid arteries bilaterally. All are essentially within normal limits and there is no evidence of old are any new infarct. Altered mental status most likely secondary to her uncontrolled psychiatric disease Patient was seen by Dr. Herrera and has recommended patient to be admitted to inpatient mental health unit as patient has not been taking medication and psychiatrically she is not stable at present time Patient will be transferred to inpatient mental health unit today. . DISCHARGE MEDICATIONS: Please see below. ALLERGIES: Please see below. PHYSICAL EXAMINATION ON DISCHARGE: VITAL SIGNS: Please see below. GENERAL: Within normal limits HEENT: PERRLA Extraocular muscles intact NECK: Supple CARDIOVASCULAR EXAMINATION: S1, S2, regular RESPIRATORY EXAMINATION: Clear to A&P ABDOMINAL EXAMINATION: Benign EXTREMITIES: No clubbing, cyanosis, edema SKIN: Normal NEUROLOGICAL EXAMINATION: . No focal motor sensory deficit PSYCHIATRIC EXAMINATION: Normal LABORATORY DATA: Please see below. IMAGING: MRI of brain, MRA of brain and MRA of carotid arteries all within normal limits PROGNOSIS: Good ACTIVITY: As tolerated. DIET: As tolerated DISCHARGE PLAN: Discharged to's inpatient psych unit DISPOSITION: To inpatient mental health unit . DISCHARGE INSTRUCTIONS: 1. As above. ITEMS TO FOLLOWUP ON ON OUTPATIENT: 1. Not applicable. DISCHARGE CONDITION: Stable. TIME SPENT ON DISCHARGE: 38 minutes. Vital Signs/I&Os Vital Signs Date Time Temp Pulse Resp B/P (MAP) Pulse Ox O2 Delivery O2 Flow Rate FiO2 12/01/19 14:00 97.9 106 20 153/107 (122) 96 Room Air I&O- Last 24 Hours up to 6 AM 12/01/19 06:00 Intake Total 770 ml Output Total 550 ml Balance 220 ml Laboratory Data Labs 24H Laboratory Tests 2 12/01/19 06:01: Nucleated Red Blood Cells % (auto) 0.0, Anion Gap 8, Glomerular Filtration Rate > 60.0, Calcium Level 8.6, Magnesium Level 2.2, Total Bilirubin 0.9, Aspartate Amino Transf (AST/SGOT) 21, Alanine Aminotransferase (ALT/SGPT) 51, Alkaline Phosphatase 142H, Total Protein 6.9, Albumin 3.6, Albumin/Globulin Ratio 1.1L CBC/BMP Laboratory Tests 12/01/19 06:01 Discharge Medications Scheduled Aspirin (Children's Aspirin) 81 Mg Tab.chew, 81 MG PO DAILY Atorvastatin Calcium (Atorvastatin Calcium) 40 Mg Tablet, 1 TAB PO DAILY Clonazepam (Clonazepam) 2 Mg Tablet, 2 MG PO QHS, (Reported) Duloxetine Hcl (Duloxetine HCl) 60 Mg Capsule.dr, 120 MG PO DAILY, (Reported) Molena Carbonate (Molena Carbonate) 300 Mg Tablet, 300 MG PO BID, (Reported) Trazodone HCl (Trazodone HCl) 50 Mg Tablet, 100 MG PO QHS, (Reported) Valsartan/Hydrochlorothiazide (Diovan Hct 320-25 mg Tablet) 1 Each Tablet, 1 TAB PO DAILY, (Reported) Allergies Coded Allergies: No Known Allergies (Unverified , 05/30/19) SAIDA JONES MD December 01, 2019 16:53
[2019-12-02] MEDS ORDERED: FLUBLOK(EGG FREE)(QUAD)INFLUENZA VACC 0.5ML SYRINGE (90682)18YRS&OLDER IM ONE (09:00)
== END 2019-12-01 18:14 ==
LOC: M ED 13:15 → M ED INP 13:16 → ENRESERV 20:41 → M MSPAV 21:19
PROVIDERS: ADMIT Internal Medicine; ATTEND Internal Medicine
DX: F31.9 Bipolar disorder, unspecified (principal); I10 Essential (primary) hypertension; R44.3 Hallucinations, unspecified; R41.82 Altered mental status, unspecified; Z91.5 Personal history of self-harm; Z79.899 Other long term (current) drug therapy; Z79.82 Long term (current) use of aspirin; Z86.73 Personal history of transient ischemic attack (TIA), and cerebral infarction without residual deficits

== ENCOUNTER 2019-12-01 17:29 | Inpatient (IN) | payer MEDICARE ==
[~2019-12-01] VITALS: Ht 167.6 cm; Wt 94.3 kg
[2019-12-01] MEDS ORDERED: MOM 30ML SUSPENSION UDC PO PRN (18:00)
[2019-12-01] MEDS ORDERED: MAALOX 30 ML SUSP *UDC PO PRN (18:00)
[2019-12-01] MEDS ORDERED: ACETAMINOPHEN TAB 650MG DOSE (2X325MG) PO PRN (18:00)
[2019-12-01 18:39] VITALS: BP 142/100
[2019-12-01] MEDS: clonazePAM 1 MG TAB PO SCH (22:17)
[2019-12-01] MEDS: LITHIUM CARBONATE 300 MG CAP PO SCH (22:17)
[2019-12-01] MEDS: traZODone 100 MG TAB PO SCH (22:17)
[2019-12-02 06:31] VITALS: BP 149/79
[2019-12-02] MEDS: DULoxetine 30 MG CAP (CYMBALTA) PO SCH (09:22)
[2019-12-02] MEDS: ASPIRIN 81 MG CHEW TABLET PO SCH (09:22)
[2019-12-02] MEDS: VALSARTAN 80 MG TAB (DIOVAN) PO SCH (09:23)
[2019-12-02] MEDS: ATORVASTATIN 20 MG TAB PO SCH (09:23)
[2019-12-02] MEDS: LITHIUM CARBONATE 300 MG CAP PO SCH ×2 (09:23→21:42)
[2019-12-02] MEDS: hydroCHLOROthiazide 25 MG TAB PO SCH (09:23)
[2019-12-02 16:08] VITALS: BP 117/69
[2019-12-02] MEDS: traZODone 100 MG TAB PO SCH (21:42)
[2019-12-02] MEDS: clonazePAM 1 MG TAB PO SCH (21:42)
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
[2019-12-03 06:32] VITALS: BP 131/82
[2019-12-03] MEDS: DULoxetine 30 MG CAP (CYMBALTA) PO SCH (09:23)
[2019-12-03] MEDS: LITHIUM CARBONATE 300 MG CAP PO SCH ×2 (09:23→20:10)
[2019-12-03] MEDS: ASPIRIN 81 MG CHEW TABLET PO SCH (09:23)
[2019-12-03] MEDS: ATORVASTATIN 20 MG TAB PO SCH (09:23)
[2019-12-03] MEDS: hydroCHLOROthiazide 25 MG TAB PO SCH (09:24)
[2019-12-03] MEDS: VALSARTAN 80 MG TAB (DIOVAN) PO SCH (09:29)
--- NOTE | 2019-12-03 10:02 | MHDSPDOC ---
[facility] Discharge Summary Discharge Summary DATE OF ADMISSION: December 01, 2019 at 18:27 DATE OF DISCHARGE: DISCHARGE DIAGNOSES: 1. . 2. . REASON FOR ADMISSION: CONSULTANTS INVOLVED: TREATMENT AND PROGRESS ON THE UNIT : . HOSPITAL COURSE: DISCHARGE ASSESSMENT: MENTAL STATUS EXAMINATION ON DISCHARGE: Patient is a -year old female, who is . Speech is . Language skills are . Thought processes including: . Thought content: . Abstract reasoning, and computation: . Description of associations: . Description of abnormal or psychotic thoughts: . Judgment: . Insight: . Orientation to . Recent and remote memory: . Attention span and concentration: . Language: . Fund of knowledge: . Mood: . Affect: . MEDICATIONS ON DISCHARGE: - for . - for . - for . PLAN/FOLLOWUP ARRANGEMENTS: . The amount of time spent in the coordination of care for this patient was approximately minutes. Vital Signs/I&Os Vital Signs Date Time Temp Pulse Resp B/P (MAP) Pulse Ox O2 Delivery O2 Flow Rate FiO2 12/03/19 09:29 125/77 12/03/19 06:32 98.1 87 14 Room Air 12/01/19 18:39 96 Medications Scheduled Aspirin (Children's Aspirin) 81 Mg Tab.chew, 81 MG PO DAILY, #30 Atorvastatin Calcium (Atorvastatin Calcium) 40 Mg Tablet, 1 TAB PO DAILY for 30 Days, #30 Clonazepam (Clonazepam) 2 Mg Tablet, 2 MG PO QHS, (Reported) Duloxetine Hcl (Duloxetine HCl) 60 Mg Capsule.dr, 120 MG PO DAILY, (Reported) [place] Carbonate (Wye Carbonate) 300 Mg Tablet, 300 MG PO BID, (Reported) Trazodone HCl (Trazodone HCl) 50 Mg Tablet, 100 MG PO QHS, (Reported) Valsartan/Hydrochlorothiazide (Diovan Hct 320-25 mg Tablet) 1 Each Tablet, 1 TAB PO DAILY, (Reported) Allergies Coded Allergies: No Known Allergies (Unverified , 05/30/19) CARA SANDOVAL DO December 03, 2019 10:02
--- NOTE | 2019-12-03 10:53 | MHIPNPDOC ---
[facility] Progress Note Progress Note Inpatient Progress Note Rayna Cavanaugh MRN: N/A Date of : N/A Date of Service: 12/03/2019 History of Present Illness The patient is a 54-year-old woman with a history of a stroke presents after becoming confused with visual hallucinations. She is admitted to medicine where further scans do not demonstrate any particular cause and she is admitted to psychiatry out of an abundance of caution. Interval History The patient has met with. Where she does report chronic memory problems and some word finding problems. Review of her chart indicates that she had a temporal lobe stroke and has likely chronic deficits. Review of her chart further indicates that she likely had a transient ischemic attack as she no longer has suicidal ideations. No further psychosis, delusions or visual hallucinations is admitted to by the patient. Nursing staff support that there is no significant change and that she has other than her memory problems and behavioral control with no signs of psychosis. She reports that the trazodone and the clonazepam make her feel fatigued and confused. Review Of Systems Cardiovascular: Denies Chest pain or palpations GI: Denies Nausea, vomiting, or bowel changes Respiratory: Denies shortness of breath or cough Derm: Denies any rashes or pruritus : Denies any dysuria or urinary problems MSK: Denies any muscle tightness or stiffness Psychotherapy None on this visit. Vital Signs Reviewed. Mental Status Examination General: Well dressed with good hygiene Speech: Spontaneous and fluid Thought processes: Linear and logical MSK: Smooth and coordinated gait, no signs of tremors or involuntary orofacial movements Thought content: Future orientated Abstract reasoning, and computation: Intact Description of associations: Intact Description of abnormal or psychotic thoughts: Denies any suicidal or homicidal ideation. Denies any auditory or visual hallucinations. Does not appear to be responding to internal stimuli. Does not appear to be endorsing any bizarre or paranoid ideation. Judgment: fair Insight: fair Orientation: Alert and generally orientated to person, place and to general date except month whether this is "September" Cognition: Grossly normal Recent and remote memory: Intact Attention span and concentration: Intact Fund of knowledge: Adequate Mood: "okay" Affect: Euthymic with a full range Diagnoses Unspecified neurocognitive disorder. Unspecified psychosis. Rule out/suspicion for psychosis related to general medical condition. Unspecified depression. Assessment and Plan Unspecified depression: Continue patient's home medications of lithium and duloxetine. Unspecified psychosis: Likely resolved secondary to TIA resolving. Unspecified neurocognitive disorder: Recommend outpatient neuropsych testing. Disposition Will discharge tomorrow. Patient wishes to stay overnight to allow the medications confusing and sedating effects to wear off before leaving tomorrow. Time Spent 15 minutes. Tuesday Vital Signs Vital Signs Date Time Temp Pulse Resp B/P (MAP) Pulse Ox O2 Delivery O2 Flow Rate FiO2 12/03/19 09:29 125/77 12/03/19 06:32 98.1 87 14 Room Air 12/01/19 18:39 96 Current Medications Current Medications Medications (Trade) Dose Ordered Sig/Ellyn Route PRN Reason Start Time Stop Time Status Last Admin Dose Admin Acetaminophen (Tylenol Tab) 650 mg Q6HP PRN PO HEADACHE or DISCOMFORT 12/01/19 18:00 Al Hydrox/Mg Hydrox/Simethicone (Mylanta) 30 ml Q4HP PRN PO HEARTBURN/INDIGESTION 12/01/19 18:00 Aspirin (Aspirin Chewable) 81 mg DAILY PO 12/02/19 09:00 12/03/19 09:23 Atorvastatin Calcium (Lipitor) 40 mg DAILY PO 12/02/19 09:00 12/03/19 09:23 Clonazepam (KlonoPIN) 1 mg QHS PO 12/01/19 21:00 12/03/19 10:49 DC 12/02/19 21:42 Duloxetine HCl (Cymbalta) 120 mg DAILY PO 12/02/19 09:00 12/03/19 09:23 Hydrochlorothiazide (Hydrodiuril) 25 mg DAILY PO 12/02/19 09:00 12/03/19 09:24 Mabel Carbonate (Mabel Carbonate) 300 mg BID PO 12/01/19 21:00 12/03/19 09:23 Magnesium Hydroxide (Milk Of Magnesia) 30 ml DAILYPRN PRN PO CONSTIPATION 12/01/19 18:00 Trazodone HCl (Desyrel) 100 mg QHS PO 12/01/19 21:00 12/02/19 21:42 Valsartan (Diovan) 320 mg DAILY PO 12/02/19 09:00 12/03/19 09:29 Allergies Coded Allergies: No Known Allergies (Unverified , 05/30/19) CARA SANDOVAL DO December 03, 2019 10:53
[2019-12-03 15:38] VITALS: BP 141/82
--- NOTE | 2019-12-03 17:20 | HPEPDOC ---
[facility] Medical History & Physical Date of Admission December 01, 2019 Date of Service: December 03, 2019 History and Physical CHIEF COMPLAINT: Admitted to inpatient mental health unit for ps ychosis/hallucinations HISTORY OF PRESENT ILLNESS: 54-year-old female with past medical history of bipolar depression, hypertension and CVA is admitted to inpatient mental health unit for psychosis/hallucinations. Patient had a confrontation with her sist er-in-law, which led to aggressive behavior, had psychotic symptoms including hallucinations and was brought to the hospital. She feels well today, no complaint at this time. She denies any chest pain, nausea, vomiting, short of breath, diarrhea or constipation. 10 point review of system is negative except for above PAST MEDICAL HISTORY: 1. Hypertension. 2. Hyperlipidemia. 3. CVA. 4. Bipolar depression PAST SURGICAL HISTORY: 1. Hysterectomy. SOCIAL HISTORY: Previous smoker. Denies alcohol use. Denies drug use FAMILY HISTORY: Negative for heart disease or cancer ALLERGIES: Please see below. HOME MEDICATIONS: Please see below. PHYSICAL EXAMINATION: VITAL SIGNS: Please see below. GENERAL: No distress HEENT: Normocephalic, atraumatic, moist mucous membranes NECK: Supple CARDIOVASCULAR EXAMINATION: S1, S2, no murmurs RESPIRATORY EXAMINATION: Clear to auscultation, no wheezing ABDOMINAL EXAMINATION: Soft, nontender, nondistended, positive bowel sounds EXTREMITIES: Range of motion intact SKIN: No rash NEUROLOGICAL EXAMINATION: Alert and oriented 3, no focal deficits PSYCHIATRIC EXAMINATION: Calm and cooperative LABORATORY DATA: See below. MICROBIOLOGY: Please see below. ASSESSMENT: 54-year-old female with multiple medical comorbidities is admitted to inpatient mental health unit for psychosis/hallucinations. PLAN: 1. Psychosis/hallucinations. Management as per primary team 2. CVA. Continue aspirin, statin 3. Hypertension. Continue valsartan and hydrochlorothiazide Vital Signs Vital Signs Date Time Temp Pulse Resp B/P (MAP) Pulse Ox O2 Delivery O2 Flow Rate FiO2 12/03/19 15:38 96.8 107 16 141/82 (101) 12/03/19 06:32 Room Air 12/01/19 18:39 96 Home Medications Scheduled Aspirin (Children's Aspirin) 81 Mg Tab.chew, 81 MG PO DAILY Atorvastatin Calcium (Atorvastatin Calcium) 40 Mg Tablet, 1 TAB PO DAILY Clonazepam (Clonazepam) 2 Mg Tablet, 2 MG PO QHS Duloxetine Hcl (Duloxetine HCl) 60 Mg Capsule.dr, 120 MG PO DAILY [place] Carbonate ([place] Carbonate) 300 Mg Tablet, 300 MG PO BID Trazodone HCl (Trazodone HCl) 50 Mg Tablet, 100 MG PO QHS Valsartan/Hydrochlorothiazide (Diovan Hct 320-25 mg Tablet) 1 Each Tablet, 1 TAB PO DAILY Allergies Coded Allergies: No Known Allergies (Unverified , 05/30/19) A-FIB/CHADSVASC A-FIB History Current/History of A-Fib/PAF?: No DIONTE BLACKMAN MD December 03, 2019 17:20
[2019-12-03] MEDS ORDERED: clonazePAM 0.5 MG TAB PO ONE (21:00)
--- NOTE | 2019-12-03 23:28 | MHIPN ---
DATE: 12/02/2019 This visit is conducted via telepsychiatry due to the current coronavirus crisis. The patient today states, "I woke up pretty confused, but with this population, I think I will get better." The patient states that she has not been seeing any of the shadows she had complained about seeing before. She admits that she is still feeling very confused, and she did say that she feels like "I need to take time for myself." MENTAL STATUS EXAMINATION: This patient is alert and oriented times three. Eye contact is fair. Psychomotor activity is decreased. There is no formal thought disorder noted. She continues to say her mood is depressed. Her affect is appropriate to mood. She is not suicidal or homicidal. I am not eliciting any actual psychotic symptoms from the patient, but her thinking is very slow. It takes her quite a while to answer questions. Concentration is poor. Her insight and judgment are poor. DIAGNOSIS: Major depressive disorder with psychotic symptoms. Rule out bipolar disorder. TREATMENT PLAN: At this point, we will continue to monitor the patient for what appears to be ongoing confusion. The patient will be continued on her current medications, and they will be titrated as indicated.
[2019-12-04] MEDS ORDERED: traZODone 50 MG TAB PO ONE (01:41)
[2019-12-04 06:09] VITALS: BP 127/77
[2019-12-04] MEDS: hydroCHLOROthiazide 25 MG TAB PO SCH (08:49)
[2019-12-04] MEDS: ATORVASTATIN 20 MG TAB PO SCH (08:49)
[2019-12-04] MEDS: LITHIUM CARBONATE 300 MG CAP PO SCH (08:49)
[2019-12-04] MEDS: ASPIRIN 81 MG CHEW TABLET PO SCH (08:49)
[2019-12-04 08:50] VITALS: BP 127/77
[2019-12-04] MEDS: DULoxetine 30 MG CAP (CYMBALTA) PO SCH (08:50)
[2019-12-04] MEDS: VALSARTAN 80 MG TAB (DIOVAN) PO SCH (08:50)
--- NOTE | 2019-12-04 09:16 | MHDSPDOC ---
[facility] Discharge Summary Discharge Summary DATE OF ADMISSION: December 01, 2019 at 18:27 DATE OF DISCHARGE: 12/04/2019 Discharge Rayna Cavanaugh MRN: N/[id number] Date of : N/A Date of Service: 12/04/2019 Diagnoses Unspecified neurocognitive disorder. Unspecified psychosis. Rule out/suspicion for psychosis related to general medical condition. Unspecified depression. History of Present Illness The patient is a 54-year-old woman with a history of a stroke presents after becoming confused with visual hallucinations. She is admitted to medicine where further scans do not demonstrate any particular cause and she is admitted to psychiatry out of an abundance of caution. Consultants Involved Hospitalist/PCP screening Treatment and Progress On The Unit The patient was admitted to the inpatient mental health unit, resumed on her home medications of clonazepam, trazodone, Cymbalta, and lithium. She was observed but had no signs of psychosis since her presentation likely indicating that it was related to a TIA. The patient was observed and subsequently demonstrate no further signs of psychosis or cani. She was triaged for discharge at her request and after some observation and discontinuation of her trazodone and clonazepam as it was making her feel confused as would be expected given her recent stroke. She did well without any major incidents. Discharge Assessment 54-year-old woman with history of strokes presents after likely TIA produces visual hallucinations that rapidly resolve. The patient at the time of discharge did not meet criteria for involuntary admission/extension due to having a normal mental status exam, fair insight into the situation, They are engaged in the discharge process, as well as being friendly and amenable in behavioral control and havent been engaging in any observed concerning behavior or ideation recently. They decline voluntary exten estrada/admission at this time and must be discharged in good sergio, as Im unable to make a case for holding the patient against their will. They may have historical risk factors of admissions and other interactions with psychiatry however, those are not modifiable from a clinical perspective. The patient will need to be discharged in good sergio. Mental Status Examination General: Well dressed with good hygiene Speech: Spontaneous and fluid Thought processes: Linear and logical MSK: Smooth and coordinated gait, no signs of tremors or involuntary orofacial movements Thought content: Future orientated Abstract reasoning, and computation: Intact Description of associations: Intact Description of abnormal or psychotic thoughts: Denies any suicidal or homicidal ideation. Denies any auditory or visual hallucinations. Does not appear to be responding to internal stimuli. Does not appear to be endorsing any bizarre or paranoid ideation. Judgment: fair Insight: fair Orientation: Alert and orientated 3 Cognition: Grossly normal Recent and remote memory: Intact Attention span and concentration: Intact Fund of knowledge: Adequate Mood: "okay" Affect: Euthymic with a full range Follow Up The social work team worked during the predischarge meeting in order to evaluate for further issues of lethality address them fully before discharge. They worked on safety planning with the patient's family members in order to ensure that the patient will have a safe and effective discharge. Time Spent The amount of time spent in the coordination of care for this patient was approximately 45 minutes. Tuesday Vital Signs/I&Os Vital Signs Date Time Temp Pulse Resp B/P (MAP) Pulse Ox O2 Delivery O2 Flow Rate FiO2 12/04/19 08:50 127/77 12/04/19 06:09 96.5 89 16 98 Room Air Laboratory Data Labs 24H Laboratory Tests 2 12/04/19 06:36: [place] Level 0.83 Medications Scheduled Aspirin (Children's Aspirin) 81 Mg Tab.chew, 81 MG PO DAILY, #30 Atorvastatin Calcium (Atorvastatin Calcium) 40 Mg Tablet, 1 TAB PO DAILY for 30 Days, #30 Duloxetine Hcl (Duloxetine HCl) 60 Mg Capsule.dr, 120 MG PO DAILY, (Reported) [place] Carbonate ([place] Carbonate) 300 Mg Tablet, 300 MG PO BID, (Reported) Valsartan/Hydrochlorothiazide (Diovan Hct 320-25 mg Tablet) 1 Each Tablet, 1 TAB PO DAILY, (Reported) Allergies Coded Allergies: No Known Allergies (Unverified , 05/30/19) CARA SANDOVAL DO December 04, 2019 09:16
== END 2019-12-04 16:00 | disposition home or self-care (01) | DRG 885 ==
LOC: M PSY 18:27
PROVIDERS: ADMIT Psychiatry & Neurology Psychiatry; ATTEND Psychiatry & Neurology Addiction Medicine
DX: F32.3 Major depressive disorder, single episode, severe with psychotic features (principal); R44.3 Hallucinations, unspecified; I10 Essential (primary) hypertension; R41.9 Unspecified symptoms and signs involving cognitive functions and awareness; Z79.899 Other long term (current) drug therapy; Z79.82 Long term (current) use of aspirin; Z86.73 Personal history of transient ischemic attack (TIA), and cerebral infarction without residual deficits; E78.5 Hyperlipidemia, unspecified

== ENCOUNTER 2019-12-24 06:51 | Inpatient (IN) | payer MEDICARE ==
[~2019-12-24] VITALS: Ht 172.7 cm; Wt 93.3 kg
[2019-12-24 08:01] LABS: HEMATOCRIT 37.6 % (36.0-47.0); HEMOGLOBIN 13.1 g/dl (12.0-15.5); MEAN CORPUSCULAR HEMOGLOBIN 33.2 pg (27.0-33.0); MEAN CORPUSCULAR HGB CONC 34.8 g/dl (32.0-36.5); MEAN CORPUSCULAR VOLUME 95.4 fl (80.0-96.0); PLATELET COUNT, AUTOMATED 312 10^3/uL (150-450); RED BLOOD COUNT 3.94 10^6/uL (4.00-5.40); WHITE BLOOD COUNT 10.3 10^3/uL (4.0-10.0)
[2019-12-24] MEDS ORDERED: CLON2TAB7 PO (08:07)
[2019-12-24] MEDS ORDERED: TRAZ-252 PO (08:07)
[2019-12-24 08:26] LABS: AMPHETAMINES LEVEL URINE NEGATIVE (NEGATIVE); BARBITURATES URINE NEGATIVE (NEGATIVE); BENZODIAZEPINES URINE NEGATIVE (NEGATIVE); CANNABINOIDS URINE NEGATIVE (NEGATIVE); COCAINE METABOLITE URINE NEGATIVE (NEGATIVE); METHADONE URINE NEGATIVE (NEGATIVE); OPIATES URINE NEGATIVE (NEGATIVE); PHENCYCLIDINE URINE NEGATIVE (NEGATIVE)
[2019-12-24 08:54] LABS: ACETAMINOPHEN LEVEL < 2.0 UG/ML (10.0-30.0); ALBUMIN 3.6 GM/DL (3.2-5.2); ALT/SGPT 30 U/L (12-78); BILIRUBIN,DIRECT 0.1 MG/DL (0.0-0.2); BILIRUBIN,TOTAL 0.4 MG/DL (0.2-1.0); BLOOD UREA NITROGEN 7 MG/DL (7-18); CARBON DIOXIDE LEVEL 26 MEQ/L (21-32); CHLORIDE LEVEL 105 MEQ/L (98-107); CREATININE FOR GFR 0.78 MG/DL (0.55-1.30); ETHYL ALCOHOL (ETHANOL) < 0.003 % (0.000-0.010); GLOMERULAR FILTRATION RATE > 60.0 (>51); GLUCOSE, FASTING 111 MG/DL (70-100); POTASSIUM SERUM 3.3 MEQ/L (3.5-5.1); SALICYLATE LEVEL < 1.7 MG/DL (5.0-30.0); SODIUM LEVEL 140 MEQ/L (136-145)
[2019-12-24] MEDS ORDERED: ATOR40TA75 PO (14:05)
[2019-12-24] MEDS ORDERED: ASPI81CH33 PO (14:05)
[2019-12-24] MEDS: clonazePAM 1 MG TAB PO SCH ×2 (16:00→21:38)
[2019-12-24] MEDS ORDERED: clonazePAM 1 MG TAB PO ONE (16:45)
[2019-12-24] MEDS ORDERED: POTASSIUM CHLORIDE 10 MEQ SR TABLET PO ONE (17:30)
[2019-12-24 18:58] VITALS: BP 178/91
[2019-12-24] MEDS: DULoxetine 30 MG CAP (CYMBALTA) PO SCH (21:38)
[2019-12-24] MEDS: ATORVASTATIN 20 MG TAB PO SCH (21:39)
[2019-12-24] MEDS: LITHIUM CARBONATE 300 MG CAP PO SCH (21:39)
[2019-12-25 06:14] VITALS: BP 144/87
[2019-12-25] MEDS: ASPIRIN 81 MG CHEW TABLET PO SCH (09:12)
[2019-12-25] MEDS: clonazePAM 1 MG TAB PO SCH (09:12)
[2019-12-25] MEDS: LITHIUM CARBONATE 300 MG CAP PO SCH ×2 (09:12→21:40)
[2019-12-25] MEDS: DULoxetine 30 MG CAP (CYMBALTA) PO SCH ×2 (09:12→21:40)
--- NOTE | 2019-12-25 09:28 | MHHPEPDOC ---
General Date Of Admission: Dec 24, 2019 Legal Status: 9.13 Chief Complaint "I have a problem with my housing. History of Present Illness HISTORY OF THE PRESENT ILLNESS: Patient is a 54 -year-old , female, who presented to [facility] reporting depression after being asked to leave her previous housing situation, she reports that she was upset and contingently suicidal if she was sent to [facility] housing. Her symptoms of depression appear highly atypical and inconsistent. The patient was told that the housing situation would likely not be able to be addressed, she was admitted out of abundance caution General: Well dressed with good hygiene Speech: Spontaneous and fluid Thought processes: Linear and logical Thought content: focused on housing Abstract reasoning, and computation: Intact Description of associations: Intact Description of abnormal or psychotic thoughts:Denies any suicidal or homicidal ideation. Denies any auditory or visual hallucinations. Does not appear to be responding to internal stimuli. Does not appear to be endorsing any bizarre or paranoid ideation. Judgment: limited Insight: limited Orientation: Alert and orientated 3 Recent and remote memory: Intact Attention span and concentration: Intact Fund of knowledge: Adequate Mood: "okay" Affect: mildly dysthymic Psychiatric Review of Systems Depression (2 or more weeks): depressed mood Niki (4 or more days of): denies Psychosis: denies PTSD: denies Anxiety: situational anxiety Past Psychiatric History Previous Psychiatric Diagnosis: bipolar disorder. Previous Psychiatric Admissions: several weeks ago. Suicide Attempts: none recently. Psychiatric Follow-up: falls over the local psychiatrist. Psychiatric medications: on Klonopin, lithium and Cymbalta, has been inconsistent on her dosing. Past Medical History Medical Problems Noncontributory Family Medical/Psychiatric HX Medical Problems No change from previous admission Addiction History denies Social History No change other than housing issue elaborated above Assessment 54-year-old woman with housing problems presents with unusual depressive symptoms that appear highly atypical and inconsistent, she appears primarily interested in housing being gone for her and is contingently suicidal, suggesting insincerity Problem List Problems: (1) Adjustment disorder Status: Acute Problem Text: Situational likely (2) Malingerer Status: Acute Discussed With: Pt and Family Services Problem Specific Plan: Monitor Clinically Problem Text: Monitor for secondary gain for housing (3) Bipolar 1 disorder Status: Chronic Response to Treatment: Stable Problem Text: Continue lithium and Cymbalta (4) Hypertension Status: Acute Problem Text: Continue home meds Initial Treatment Plan 1. Patient was admitted on a 03.30 status. 2. Complete history was obtained. 3. With patients permission, family will be contacted and database will be expanded. 4. Patients medication regimen will be reviewed and changed accordingly. 5. Patient will be provided with protected environment. 6. Patient will be treated with individual, group, and milieu therapies. 7. Patient will receive supportive psych-education. 8. Discharge planning will commence immediately. 9. Outpatient follow-up treatment will be strongly recommended. 10. The initial treatment plan will focus initially on: ineffective coping risk for SI ESTIMATED LENGTH OF STAY: 2-3 DAYS. TIME SPENT COUNSELING AND COORDINATING INITIAL CARE: 30 minutes. Vital Signs Vital Signs Date Time Temp Pulse Resp B/P (MAP) Pulse Ox O2 Delivery O2 Flow Rate FiO2 12/25/19 06:14 98.6 102 16 144/87 (106) Room Air 12/24/19 18:58 100 Medications Scheduled Aspirin (Aspirin) 81 Mg Tab.chew, 81 MG PO DAILY, (Reported) Atorvastatin Calcium (Atorvastatin Calcium) 40 Mg Tablet, 40 MG PO QHS, (Reported) Clonazepam (Clonazepam) 2 Mg Tablet, 2 MG PO TID, (Reported) Duloxetine Hcl (Duloxetine HCl) 60 Mg Capsule.dr, 60 MG PO BID, (Reported) [place] Carbonate ([place] Carbonate) 300 Mg Tablet, 300 MG PO BID, (Reported) Trazodone HCl (Trazodone HCl) 50 Mg Tablet, 50 MG PO QHS, (Reported) Valsartan/Hydrochlorothiazide (Diovan Hct 320-25 mg Tablet) 1 Each Tablet, 1 TAB PO DAILY, (Reported) Allergies Coded Allergies: No Known Allergies (Unverified , 05/30/19) CARA SANDOVAL DO Dec 25, 2019 09:28
[2019-12-25] MEDS ORDERED: LORazepam 2 MG TAB PO PRN (11:00)
[2019-12-25] MEDS: THIAMINE 100 MG TAB PO SCH ×2 (11:06→21:40)
[2019-12-25] MEDS: MULTIVITAMINS/MINERALS THERAP 1 TAB PO SCH (11:06)
[2019-12-25] MEDS: FOLIC ACID 1 MG TAB PO SCH (11:06)
[2019-12-25 16:11] VITALS: BP 116/77
[2019-12-25 16:13] VITALS: BP 116/77
[2019-12-25] MEDS: IBUPROFEN 400MG TAB PO PRN (16:16)
[2019-12-25] MEDS: ATORVASTATIN 20 MG TAB PO SCH (21:40)
[2019-12-25] MEDS: traZODone 50 MG TAB PO PRN (21:41)
[2019-12-26 06:20] VITALS: BP 131/79
[2019-12-26] MEDS: MULTIVITAMINS/MINERALS THERAP 1 TAB PO SCH (08:42)
[2019-12-26] MEDS: FOLIC ACID 1 MG TAB PO SCH (08:42)
[2019-12-26] MEDS: THIAMINE 100 MG TAB PO SCH ×2 (08:42→20:31)
[2019-12-26] MEDS: LITHIUM CARBONATE 300 MG CAP PO SCH ×2 (08:42→20:32)
[2019-12-26] MEDS: DULoxetine 30 MG CAP (CYMBALTA) PO SCH ×2 (08:42→20:32)
[2019-12-26] MEDS: ASPIRIN 81 MG CHEW TABLET PO SCH (08:42)
--- NOTE | 2019-12-26 09:39 | MHIPNPDOC ---
[facility] Progress Note Progress Note DOS: 12/26/2019 Patient met with today with nurse present for telehealth evaluation due to COVID Crisis Events Overnight:[none] Group Attendance:: none Symptom changes (psych ROS): Affective: reports vague depression symptoms, with no specifics Psychotic:[None today] Anxiety: situational anxiety Staff Report: primarily on engaged in treatment per staff Medical ROS: [Denies any physical symptoms MSE: Vitals: Below General: [Well dressed with good hygiene] Speech: [Spontaneous and fluid] Thought processes: [Linear and logical] Thought content: presumptive on housing Abstract reasoning, and computation: [Intact] Description of associations: [Intact] Description of abnormal or psychotic thoughts: reports contention suicidal ideation, she's discharged to a [facility] place Judgment: limited Insight: limited Orientation: [Alert and orientated 3] Recent and remote memory: [Intact] Attention span and concentration: [Intact] Fund of knowledge: [Adequate] Mood: ["okay"] Affect: mostly euthymic Vital Signs Vital Signs Date Time Temp Pulse Resp B/P (MAP) Pulse Ox O2 Delivery O2 Flow Rate FiO2 12/26/19 06:20 97.7 84 18 131/79 (96) 12/25/19 06:14 Room Air 12/24/19 18:58 100 Current Medications Current Medications Medications (Trade) Dose Ordered Sig/Ellyn Route PRN Reason Start Time Stop Time Status Last Admin Dose Admin Acetaminophen (Tylenol Tab) 650 mg Q6HP PRN PO HEADACHE or DISCOMFORT 12/24/19 17:00 Aspirin (Aspirin Chewable) 81 mg DAILY PO 12/25/19 09:00 12/26/19 08:42 Atorvastatin Calcium (Lipitor) 40 mg QHS PO 12/24/19 21:00 12/25/19 21:40 Clonazepam (KlonoPIN) 2 mg TID PO 12/24/19 16:00 12/25/19 10:47 DC 12/25/19 09:12 Duloxetine HCl (Cymbalta) 60 mg BID PO 12/24/19 21:00 12/26/19 08:42 Folic Acid (Folic Acid) 1 mg DAILY PO 12/25/19 09:00 12/26/19 08:42 Home Med (Med Rec Complete!) ASDIRECTED XX 12/24/19 14:15 12/24/19 14:06 DC Ibuprofen (Advil) 400 mg Q6HP PRN PO PAIN 12/24/19 17:00 12/25/19 16:16 [place] Carbonate ([place] Carbonate) 300 mg BID PO 12/24/19 21:00 12/26/19 08:42 Lorazepam (Ativan) 2 mg ASDIRECTED PRN PO SEE PROTOCOL 12/25/19 11:00 Magnesium Hydroxide (Milk Of Magnesia) 30 ml DAILYPRN PRN PO CONSTIPATION 12/24/19 17:00 Multivitamins (Theragram-M) 1 tab DAILY PO 12/25/19 09:00 12/26/19 08:42 Thiamine HCl (Thiamine HCl) 100 mg BID PO 12/25/19 09:00 12/27/19 21:01 12/26/19 08:42 Trazodone HCl (Desyrel) 50 mg QHSP PRN PO INSOMNIA 12/24/19 17:00 12/25/19 21:41 Allergies Coded Allergies: No Known Allergies (Unverified , 05/30/19) Problems (1) Adjustment disorder Status: Acute Problem Text: likely related to conflict appears to be resolving (2) Malingerer Status: Acute Discussed With: Pt and Family Services Problem Specific Plan: Monitor Clinically Problem Text: likely related to patient's housing problem, she will eventually begin to redactor ideation as it becomes clear that her housing will not be changed due to reported ideation (3) Bipolar 1 disorder Status: Chronic Response to Treatment: Stable Problem Specific Plan: Repeat Labs Problem Text: continue Cymbalta and lithium (4) Hypertension Status: Acute Problem Text: continue home medications Plan / VTE VTE Prophylaxis Ordered?: No Plan Diet: Continue Current Activity: Continue Current Anticipated Discharge: Other Anticipated D/C (DSS, likely end of week) CARA SANDOVAL DO Dec 26, 2019 09:39
--- NOTE | 2019-12-26 14:19 | HPEPDOC ---
General Date of Admission Dec 24, 2019 at 16:55 Date of Service: Dec 26, 2019 Chief Complaint The patient is a 54-year-old female admitted with a reason for visit of Unspecified Depressive Disorder. History of Present Illness 54-year-old female with PMH of hypertension, cva, hyperlipidemia, bipolar disorder admitted to inpatient mental health unit for depression. I am seeing he patient for medical history and physical. Patient feeling anxious and depressed otherwise denied any medical complaints. Home Medications Scheduled Aspirin (Aspirin) 81 Mg Tab.chew, 81 MG PO DAILY, (Reported) Atorvastatin Calcium (Atorvastatin Calcium) 40 Mg Tablet, 40 MG PO QHS, (Reported) Clonazepam (Clonazepam) 2 Mg Tablet, 2 MG PO TID, (Reported) Duloxetine Hcl (Duloxetine HCl) 60 Mg Capsule.dr, 60 MG PO BID, (Reported) [place] Carbonate ([place] Carbonate) 300 Mg Tablet, 300 MG PO BID, (Reported) Trazodone HCl (Trazodone HCl) 50 Mg Tablet, 50 MG PO QHS, (Reported) Valsartan/Hydrochlorothiazide (Diovan Hct 320-25 mg Tablet) 1 Each Tablet, 1 TAB PO DAILY, (Reported) Allergies Coded Allergies: No Known Allergies (Unverified , 05/30/19) Past Medical History Medical History 1. Hypertension. 2. Hyperlipidemia. 3. CVA. 4. Bipolar depression 5. Adjustment disorder. 6. Malingering Surgical History 1. Hysterectomy. Family History Significant Family History: Hypertension No heart disease or cancer Social History * Smoker: former Smoker Alcohol: Denies Drugs: denies A-FIB/CHADSVASC A-FIB History Current/History of A-Fib/PAF?: No Review of Systems Constitutional: Denies: Chills, Fever, Night Sweats Eyes: Denies: Pain, Vision change ENT: Denies: Head Aches, Ear Pain, Dysphagia Skin: Denies: Rash, Lesions, Breakdown Pulmonary: Denies: Dyspnea, Cough Cardiovascular: Denies: Chest Pain, Palpitations, Orthopnea, Paroxysmal Noc. Dyspnea, Lt Headedness Gastrointestinal: Reports: Nausea; Denies: Vomiting, Abdominal Pain, Diarrhea Genitourinary: Denies: Dysuria, Frequency, Incontinence, Retention Hematologic: Denies: Bruising, Bleeding Excessively Musculoskeletal: Denies: Neck Pain, Back Pain, Joint Pain, Muscle Pain, Spasms Physical Examination General Exam: Positive: Alert, Cooperative, No Acute Distress Eye Exam: Positive: PERRLA, Conjunctiva & lids normal, EOMI; Negative: Sclera icteric ENT Exam: Positive: Atraumatic, Mucous membr. moist/pink, Pharynx Normal Neck Exam: Positive: Supple; Negative: JVD, thyromegaly Chest Exam: Positive: Clear to auscultation, Normal air movement Heart Exam: Positive: Rate Normal, Regular Rhythm, Normal S1, Normal S2; Negative: Murmurs, Rubs Abdomen Exam: Positive: Normal bowel sounds, Soft; Negative: Tenderness, Hepatospenomegaly Extremity Exam: Positive: Normal pulses; Negative: Clubbing, Cyanosis, Edema Skin Exam: Positive: Nl turgor and temperature; Negative: Breakdown, Lesion Vital Signs Vital Signs Date Time Temp Pulse Resp B/P (MAP) Pulse Ox O2 Delivery O2 Flow Rate FiO2 12/26/19 06:20 97.7 84 18 131/79 (96) 12/25/19 06:14 Room Air 12/24/19 18:58 100 Assessment/Plan 54-year-old female admitted to inpatient mental health unit for depression. I am seeing he patient for medical history and physical. PLAN: 1. Bilolar disorder/ adjustment disorder/maligering Management as per primary team 2. H/o CVA acute/subacute ischemia in MRI in October 2019 Continue aspirin, statin 3. Hypertension. Continue valsartan and hydrochlorothiazide 4. Hyperlipidemia - statin. Plan / VTE VTE Prophylaxis Ordered?: No KASSY LAWRENCE MD Dec 26, 2019 14:19
[2019-12-26 16:10] VITALS: BP 129/90
[2019-12-26 20:15] VITALS: BP 131/93
[2019-12-26] MEDS: IBUPROFEN 400MG TAB PO PRN (20:32)
[2019-12-26] MEDS: traZODone 50 MG TAB PO PRN (20:33)
[2019-12-26] MEDS: ATORVASTATIN 20 MG TAB PO SCH (20:33)
[2019-12-27 06:30] VITALS: BP 138/79
[2019-12-27 09:00] VITALS: BP 138/79
[2019-12-27] MEDS: THIAMINE 100 MG TAB PO SCH ×2 (09:09→21:47)
[2019-12-27] MEDS: LITHIUM CARBONATE 300 MG CAP PO SCH ×2 (09:09→21:48)
[2019-12-27] MEDS: FOLIC ACID 1 MG TAB PO SCH (09:09)
[2019-12-27] MEDS: MULTIVITAMINS/MINERALS THERAP 1 TAB PO SCH (09:09)
[2019-12-27] MEDS: ASPIRIN 81 MG CHEW TABLET PO SCH (09:09)
[2019-12-27] MEDS: DULoxetine 30 MG CAP (CYMBALTA) PO SCH ×2 (09:09→21:48)
--- NOTE | 2019-12-27 16:19 | MHIPNPDOC ---
[facility] Progress Note Progress Note DATE OF SERVICE: 12/27/19 HISTORY: As per previous notes: "Patient is a 54 -year-old , female, who presented to [facility] reporting depression after being asked to leave her previous housing situation, she reports that she was upset and contingently suicidal if she was sent to [facility] housing. Her symptoms of depression appear highly atypical and inconsistent. The patient was told that the housing situation would likely not be able to be addressed, she was admitted out of abundance caution" VITAL SIGNS: See below. NEW TEST RESULTS: See below CURRENT MEDICATIONS: See below. MENTAL STATUS EXAMINATION: Patient is a 54 old female, who is alert, dressed in hospital clothes. Speech: Is spontaneous, slow, normal tone and volume. Language skills are Intact Thought processes including: linear and coherent. Thought content: positive for suicidal ideation, denies homicidal ideation. Reports paranoid ideation, bizarre delusions. Description of abnormal or psychotic thoughts: . Judgment: Poor Insight: Poor. Orientation: x 3 Recent and remote memory: good Attention span and concentration: good. Language: adequate. Fund of knowledge: average. Mood: sad/anxious. Affect: congruent with mood DIAGNOSES: 1. Bipolar disorder 2. R/O MDD, severe, recurrent 3. Adjustment disorder ASSESSMENT: The patient seems to be very depressed, her affect is flat/constricted. However, she says that she feels a little better than on her admission. MANAGEMENT PLAN: As per Dr. Bauer TIME SPENT: 20 minutes. Vital Signs Vital Signs Date Time Temp Pulse Resp B/P (MAP) Pulse Ox O2 Delivery O2 Flow Rate FiO2 12/27/19 09:00 86 138/79 12/27/19 06:30 97.3 18 98 Room Air Laboratory Data 24H Labs Laboratory Tests 2 12/27/19 07:05: [place] Level 0.51L Current Medications Current Medications Medications (Trade) Dose Ordered Sig/Ellyn Route PRN Reason Start Time Stop Time Status Last Admin Dose Admin Acetaminophen (Tylenol Tab) 650 mg Q6HP PRN PO HEADACHE or DISCOMFORT 12/24/19 17:00 Aspirin (Aspirin Chewable) 81 mg DAILY PO 12/25/19 09:00 12/27/19 09:09 Atorvastatin Calcium (Lipitor) 40 mg QHS PO 12/24/19 21:00 12/26/19 20:33 Clonazepam (KlonoPIN) 2 mg TID PO 12/24/19 16:00 12/25/19 10:47 DC 12/25/19 09:12 Duloxetine HCl (Cymbalta) 60 mg BID PO 12/24/19 21:00 12/27/19 09:09 Folic Acid (Folic Acid) 1 mg DAILY PO 12/25/19 09:00 12/27/19 09:09 Home Med (Med Rec Complete!) ASDIRECTED XX 12/24/19 14:15 12/24/19 14:06 DC Ibuprofen (Advil) 400 mg Q6HP PRN PO PAIN 12/24/19 17:00 12/26/19 20:32 [place] Carbonate ([place] Carbonate) 300 mg BID PO 12/24/19 21:00 12/27/19 09:09 Lorazepam (Ativan) 2 mg ASDIRECTED PRN PO SEE PROTOCOL 12/25/19 11:00 12/26/19 20:32 Magnesium Hydroxide (Milk Of Magnesia) 30 ml DAILYPRN PRN PO CONSTIPATION 12/24/19 17:00 Multivitamins (Theragram-M) 1 tab DAILY PO 12/25/19 09:00 12/27/19 09:09 Thiamine HCl (Thiamine HCl) 100 mg BID PO 12/25/19 09:00 12/27/19 21:01 12/27/19 09:09 Trazodone HCl (Desyrel) 50 mg QHSP PRN PO INSOMNIA 12/24/19 17:00 12/26/19 20:33 Allergies Coded Allergies: No Known Allergies (Unverified , 05/30/19) REE VERA MD Dec 27, 2019 16:11
[2019-12-27 17:51] VITALS: BP 135/86
[2019-12-27] MEDS: ACETAMINOPHEN TAB 650MG DOSE (2X325MG) PO PRN (18:25)
[2019-12-27 18:26] VITALS: BP 126/100
[2019-12-27] MEDS ORDERED: hydrOXYzine 50 MG TAB PO ONE (18:45)
[2019-12-27 19:13] VITALS: BP 120/94
[2019-12-27] MEDS: ATORVASTATIN 20 MG TAB PO SCH (21:48)
[2019-12-27] MEDS: traZODone 50 MG TAB PO PRN (21:48)
[2019-12-28 06:59] VITALS: BP 176/104
[2019-12-28] MEDS: DULoxetine 30 MG CAP (CYMBALTA) PO SCH ×2 (08:21→20:42)
[2019-12-28] MEDS: MULTIVITAMINS/MINERALS THERAP 1 TAB PO SCH (08:21)
[2019-12-28] MEDS: ASPIRIN 81 MG CHEW TABLET PO SCH (08:21)
[2019-12-28] MEDS: FOLIC ACID 1 MG TAB PO SCH (08:21)
[2019-12-28] MEDS: LITHIUM CARBONATE 300 MG CAP PO SCH ×2 (08:21→20:42)
[2019-12-28] MEDS: hydrOXYzine 50 MG TAB PO PRN ×2 (08:25→14:14)
[2019-12-28 08:26] VITALS: BP_SYST 124; BP_DIAS 80; BP_DIAS 82
[2019-12-28] MEDS: ACETAMINOPHEN TAB 650MG DOSE (2X325MG) PO PRN (14:14)
[2019-12-28 17:20] VITALS: BP 139/90
--- NOTE | 2019-12-28 17:29 | MHIPN ---
DATE: 12/28/2019 This is a video appointment, it is an assessment, inpatient unit. We are doing this because of the virus pandemic. She is aware and agrees to it. She is accompanied by staff. CHIEF COMPLAINT: Feels depressed. SUBJECTIVE: Seen for followup. Indicates that she feels depressed, says feels hopeless, and that she has suicidal thoughts. Says she has thought of jumping off a building or being hit by a truck. Says has recently lost housing. Says has no friends, and no one she can turn to. MENTAL STATUS EXAM: Fairly neat. She is cooperative. There is no agitation. No psychomotor retardation. She is coherent. Affect is restricted in range, appears depressed. Has suicidal thoughts, with plans. No evidence of any thoughts of harming anyone else, nor of any psychosis. Cognition is grossly intact. Judgment and insight are compromised. ASSESSMENT: Bipolar disorder, current episode depressed and severe. PLAN: Continue current care, observations. She suggests that she has no plans of harming herself in hospital. I would suggest continuing with present precautions as well. She is distressed by lack of housing. She is to be encouraged to participate in activities on the unit. Further recommendations will be made when she sees the psychiatrist manager contract tomorrow. VITAL SIGNS: Blood pressure 124/80, pulse 90, temperature 98.
[2019-12-28] MEDS: traZODone 50 MG TAB PO PRN (20:42)
[2019-12-28] MEDS: ATORVASTATIN 20 MG TAB PO SCH (20:42)
[2019-12-29 06:27] VITALS: BP 146/88
[2019-12-29] MEDS: hydrOXYzine 50 MG TAB PO PRN ×2 (08:43→14:53)
[2019-12-29] MEDS: ASPIRIN 81 MG CHEW TABLET PO SCH (08:43)
[2019-12-29] MEDS: LITHIUM CARBONATE 300 MG CAP PO SCH ×2 (08:44→21:03)
[2019-12-29] MEDS: DULoxetine 30 MG CAP (CYMBALTA) PO SCH ×2 (08:44→21:03)
[2019-12-29] MEDS: MULTIVITAMINS/MINERALS THERAP 1 TAB PO SCH (08:44)
[2019-12-29] MEDS: FOLIC ACID 1 MG TAB PO SCH (08:44)
[2019-12-29] MEDS: IBUPROFEN 400MG TAB PO PRN (08:47)
[2019-12-29 16:26] VITALS: BP 138/94
[2019-12-29] MEDS ORDERED: LORazepam 2 MG TAB PO ONE (17:30)
[2019-12-29] MEDS: ATORVASTATIN 20 MG TAB PO SCH (21:02)
[2019-12-29] MEDS: traZODone 50 MG TAB PO PRN (21:03)
[2019-12-30 06:44] VITALS: BP 142/98
[2019-12-30] MEDS: hydrOXYzine 50 MG TAB PO PRN (08:28)
[2019-12-30] MEDS: ASPIRIN 81 MG CHEW TABLET PO SCH (08:28)
[2019-12-30] MEDS: DULoxetine 30 MG CAP (CYMBALTA) PO SCH ×2 (08:28→21:04)
[2019-12-30] MEDS: LITHIUM CARBONATE 300 MG CAP PO SCH ×2 (08:28→21:04)
[2019-12-30] MEDS: FOLIC ACID 1 MG TAB PO SCH (08:28)
[2019-12-30] MEDS: MULTIVITAMINS/MINERALS THERAP 1 TAB PO SCH (08:28)
[2019-12-30] MEDS ORDERED: LORazepam 1 MG TAB PO ONE (15:30)
[2019-12-30] MEDS: hydrOXYzine 50 MG TAB PO SCH ×2 (15:32→21:04)
[2019-12-30 16:29] VITALS: BP 125/73
[2019-12-30] MEDS: traZODone 50 MG TAB PO PRN (21:04)
[2019-12-30] MEDS: ATORVASTATIN 20 MG TAB PO SCH (21:04)
[2019-12-30] MEDS: ACETAMINOPHEN TAB 650MG DOSE (2X325MG) PO PRN (21:05)
[2019-12-31 06:39] VITALS: BP 142/92
[2019-12-31] MEDS: ASPIRIN 81 MG CHEW TABLET PO SCH (09:34)
[2019-12-31] MEDS: LITHIUM CARBONATE 300 MG CAP PO SCH ×2 (09:34→20:59)
[2019-12-31] MEDS: MULTIVITAMINS/MINERALS THERAP 1 TAB PO SCH (09:34)
[2019-12-31] MEDS: DULoxetine 30 MG CAP (CYMBALTA) PO SCH ×2 (09:34→20:59)
[2019-12-31] MEDS: hydrOXYzine 50 MG TAB PO SCH ×3 (09:34→20:59)
[2019-12-31] MEDS: FOLIC ACID 1 MG TAB PO SCH (09:34)
[2019-12-31 15:46] VITALS: BP 133/94
[2019-12-31] MEDS: IBUPROFEN 400MG TAB PO PRN (18:01)
[2019-12-31] MEDS: traZODone 50 MG TAB PO PRN (20:59)
[2019-12-31] MEDS: ATORVASTATIN 20 MG TAB PO SCH (21:00)
[2020-01-01 06:00] VITALS: BP 148/90
[2020-01-01] MEDS: ASPIRIN 81 MG CHEW TABLET PO SCH (08:33)
[2020-01-01] MEDS: LITHIUM CARBONATE 300 MG CAP PO SCH (08:33)
[2020-01-01] MEDS: DULoxetine 30 MG CAP (CYMBALTA) PO SCH ×2 (08:33→20:45)
[2020-01-01] MEDS: hydrOXYzine 50 MG TAB PO SCH ×3 (08:33→20:46)
[2020-01-01] MEDS: FOLIC ACID 1 MG TAB PO SCH (08:33)
[2020-01-01] MEDS: MULTIVITAMINS/MINERALS THERAP 1 TAB PO SCH (08:33)
[2020-01-01] MEDS: clonazePAM 0.5 MG TAB PO SCH ×2 (16:26→20:45)
[2020-01-01] MEDS: VALSARTAN 80 MG TAB (DIOVAN) PO SCH ×2 (16:26→17:17)
[2020-01-01 17:27] VITALS: BP 142/90
[2020-01-01] MEDS: ATORVASTATIN 20 MG TAB PO SCH (20:45)
[2020-01-01] MEDS: LITHIUM CARBONATE 150 MG CAP PO SCH (20:45)
[2020-01-01] MEDS: traZODone 50 MG TAB PO PRN (20:46)
--- NOTE | 2020-01-01 22:11 | MHIPN ---
DATE OF SERVICE: 01/01/2020 The patient is seen via telepsychiatry due to the current Coronavirus crisis. The patient today states that "I thought I was getting better, but last night I started to have a lot of very high anxiety and I couldn't sleep." Today, she says she has been anxious all day. In addition, the patient states that she has been having pain in her face due to her trigeminal neuralgia. She was prescribed Klonopin 2 mg three times a day. She states that she has not been placed on the Klonopin since admission. MENTAL STATUS EXAM: This patient is alert and oriented times three. Her eye contact is fair. She is cooperative. She exhibits no formal thought disorder. Her mood, she says, is very anxious. Affect is appropriate to mood. She is not psychotic. She is not having any suicidal or homicidal ideations today. Concentration and memory appears to be intact. Insight and judgment is fair. DIAGNOSES: Bipolar disorder, depressed. TREATMENT PLAN: At this point, the patient continues to complain of depression and anxiety. She did not sleep well last night. I will go ahead and increase her lithium to 450 mg twice a day. I would increase the trazodone to 150 mg nightly as needed for insomnia, as it seems that she was on 150 mg of trazodone prior to admission. Also, the patient does apparently have a history where she was drinking alcohol almost every day prior to admission. And so due to the fact that she says she takes the Klonopin for her trigeminal neuralgia also, I will start her on at least a lower dose of Klonopin 0.5 mg three times a day. [facility]
[2020-01-02 06:48] VITALS: BP 124/90
[2020-01-02] MEDS: ASPIRIN 81 MG CHEW TABLET PO SCH (08:33)
[2020-01-02] MEDS: VALSARTAN 80 MG TAB (DIOVAN) PO SCH (08:33)
[2020-01-02] MEDS: IBUPROFEN 400MG TAB PO PRN (08:34)
[2020-01-02] MEDS: DULoxetine 30 MG CAP (CYMBALTA) PO SCH ×2 (08:34→21:29)
[2020-01-02] MEDS: clonazePAM 0.5 MG TAB PO SCH ×3 (08:34→21:29)
[2020-01-02] MEDS: LITHIUM CARBONATE 150 MG CAP PO SCH ×2 (08:35→21:29)
[2020-01-02] MEDS: FOLIC ACID 1 MG TAB PO SCH (08:35)
[2020-01-02] MEDS: MULTIVITAMINS/MINERALS THERAP 1 TAB PO SCH (08:35)
[2020-01-02] MEDS: hydrOXYzine 50 MG TAB PO SCH ×3 (08:36→21:29)
--- NOTE | 2020-01-02 10:30 | MHIPNPDOC ---
[facility] Progress Note Progress Note DATE OF SERVICE: 01/02/[address] presents today for a general visit. She states that she a bad headache. She is feeling depressed and anxious. She is currently taking Klonopin. She has had suicidal thoughts but denies having homicidal thoughts. She feels done with life because she has been fighting severe depression for 15 years. She is homeless and that has made her depressed lately. ROS Psychiatric: +Suicidal ideation, +Depression, +Anxiety Objective Appearance: Well nourished. Well groomed. Speech: Normal rate. sponataneous and fluid. reports suicidal thoughts. Normal volume. Thought Form: Linear and goal directed. Perception: overt signs of psychosis. Judgement: poor judgement. Insight: poor insight. Assessment F33.1 Major depressive disorder, recurrent, moderate Plan Patient is a 54-year old woman with adjustment disorder and possible secondary gain. Due to housing, she presents suicidal ideation. Collateral information from her family reports of unusual characteristics. However, these are unclear as to whether there are bipolar disorder or other issues. We will continue with her current medications. The plan is to continue medications with no changes at this time. She has re stored on Clonazepam, even though it is not a preferred agent for individuals with suicidal thoughts. Further observation will likely determine if this is necessary. Vital Signs Vital Signs Date Time Temp Pulse Resp B/P (MAP) Pulse Ox O2 Delivery O2 Flow Rate FiO2 01/02/20 08:33 125/84 01/02/20 06:48 97.2 91 12 95 Room Air Current Medications Current Medications Medications (Trade) Dose Ordered Sig/Ellyn Route PRN Reason Start Time Stop Time Status Last Admin Dose Admin Acetaminophen (Tylenol Tab) 650 mg Q6HP PRN PO HEADACHE or DISCOMFORT 12/24/19 17:00 12/30/19 21:05 Aspirin (Aspirin Chewable) 81 mg DAILY PO 12/25/19 09:00 01/02/20 08:33 Atorvastatin Calcium (Lipitor) 40 mg QHS PO 12/24/19 21:00 01/01/20 20:45 Clonazepam (KlonoPIN) 0.5 mg TID PO 01/01/20 16:00 01/02/20 08:34 Clonazepam (KlonoPIN) 2 mg TID PO 12/24/19 16:00 12/25/19 10:47 DC 12/25/19 09:12 Duloxetine HCl (Cymbalta) 60 mg BID PO 12/24/19 21:00 01/02/20 08:34 Folic Acid (Folic Acid) 1 mg DAILY PO 12/25/19 09:00 01/02/20 08:35 Home Med (Med Rec Complete!) ASDIRECTED XX 12/24/19 14:15 12/24/19 14:06 DC Hydrochlorothiazide (Hydrodiuril) 25 mg DAILY PO 01/01/20 09:00 01/02/20 08:36 Hydroxyzine HCl (Atarax) 50 mg TID PO 12/30/19 16:00 01/02/20 08:36 Hydroxyzine HCl (Atarax) 50 mg TIDP PRN PO ANXIETY/AGITATION 12/27/19 18:45 12/30/19 15:16 DC 12/30/19 08:28 Ibuprofen (Advil) 400 mg Q6HP PRN PO PAIN 12/24/19 17:00 01/02/20 08:34 [place] Carbonate ([place] Carbonate) 300 mg BID PO 12/24/19 21:00 01/01/20 15:33 DC 01/01/20 08:33 [place] Carbonate ([place] Carbonate) 450 mg BID PO 01/01/20 21:00 01/02/20 08:35 Lorazepam (Ativan) 2 mg ASDIRECTED PRN PO SEE PROTOCOL 12/25/19 11:00 12/28/19 20:04 DC 12/26/19 20:32 Magnesium Hydroxide (Milk Of Magnesia) 30 ml DAILYPRN PRN PO CONSTIPATION 12/24/19 17:00 Multivitamins (Theragram-M) 1 tab DAILY PO 12/25/19 09:00 01/02/20 08:35 Thiamine HCl (Thiamine HCl) 100 mg BID PO 12/25/19 09:00 12/27/19 21:01 DC 12/27/19 21:47 Trazodone HCl (Desyrel) 50 mg QHSP PRN PO INSOMNIA 12/24/19 17:00 01/01/20 15:33 DC 12/31/19 20:59 Trazodone HCl (Desyrel) 150 mg QHSP PRN PO INSOMNIA 01/01/20 15:30 01/01/20 20:46 Valsartan (Diovan) 320 mg DAILY PO 01/01/20 09:00 01/02/20 08:33 Allergies Coded Allergies: No Known Allergies (Unverified , 05/30/19) CARA SANDOVAL DO Jan 02, 2020 10:30
[2020-01-02] MEDS: ACETAMINOPHEN TAB 650MG DOSE (2X325MG) PO PRN ×2 (14:20→21:31)
[2020-01-02 20:00] VITALS: BP 131/89
[2020-01-02] MEDS: traZODone 50 MG TAB PO PRN (21:29)
[2020-01-02] MEDS: ATORVASTATIN 20 MG TAB PO SCH (21:29)
[2020-01-03 06:16] VITALS: BP 135/88
--- NOTE | 2020-01-03 09:24 | MHIPNPDOC ---
[facility] Progress Note Progress Note Unable to see patient as telehealth couldn't be arranged after multiple attempts to reach unit, discussed with supervisor pumping, unable to complete assessment. Vital Signs Vital Signs Date Time Temp Pulse Resp B/P (MAP) Pulse Ox O2 Delivery O2 Flow Rate FiO2 01/03/20 06:16 98.7 90 14 135/88 (104) Room Air 01/02/20 06:48 95 Current Medications Current Medications Medications (Trade) Dose Ordered Sig/Ellyn Route PRN Reason Start Time Stop Time Status Last Admin Dose Admin Acetaminophen (Tylenol Tab) 650 mg Q6HP PRN PO HEADACHE or DISCOMFORT 12/24/19 17:00 01/02/20 21:31 Aspirin (Aspirin Chewable) 81 mg DAILY PO 12/25/19 09:00 01/02/20 08:33 Atorvastatin Calcium (Lipitor) 40 mg QHS PO 12/24/19 21:00 01/02/20 21:29 Clonazepam (KlonoPIN) 0.5 mg TID PO 01/01/20 16:00 01/02/20 21:29 Clonazepam (KlonoPIN) 2 mg TID PO 12/24/19 16:00 12/25/19 10:47 DC 12/25/19 09:12 Duloxetine HCl (Cymbalta) 60 mg BID PO 12/24/19 21:00 01/02/20 21:29 Folic Acid (Folic Acid) 1 mg DAILY PO 12/25/19 09:00 01/02/20 08:35 Home Med (Med Rec Complete!) ASDIRECTED XX 12/24/19 14:15 12/24/19 14:06 DC Hydrochlorothiazide (Hydrodiuril) 25 mg DAILY PO 01/01/20 09:00 01/02/20 08:36 Hydroxyzine HCl (Atarax) 50 mg TID PO 12/30/19 16:00 01/02/20 21:29 Hydroxyzine HCl (Atarax) 50 mg TIDP PRN PO ANXIETY/AGITATION 12/27/19 18:45 12/30/19 15:16 DC 12/30/19 08:28 Ibuprofen (Advil) 400 mg Q6HP PRN PO PAIN 12/24/19 17:00 01/02/20 08:34 [place] Carbonate ([place] Carbonate) 300 mg BID PO 12/24/19 21:00 01/01/20 15:33 DC 01/01/20 08:33 [place] Carbonate ([place] Carbonate) 450 mg BID PO 01/01/20 21:00 01/02/20 21:29 Lorazepam (Ativan) 2 mg ASDIRECTED PRN PO SEE PROTOCOL 12/25/19 11:00 12/28/19 20:04 DC 12/26/19 20:32 Magnesium Hydroxide (Milk Of Magnesia) 30 ml DAILYPRN PRN PO CONSTIPATION 12/24/19 17:00 Multivitamins (Theragram-M) 1 tab DAILY PO 12/25/19 09:00 01/02/20 08:35 Thiamine HCl (Thiamine HCl) 100 mg BID PO 12/25/19 09:00 12/27/19 21:01 DC 12/27/19 21:47 Trazodone HCl (Desyrel) 50 mg QHSP PRN PO INSOMNIA 12/24/19 17:00 01/01/20 15:33 DC 12/31/19 20:59 Trazodone HCl (Desyrel) 150 mg QHSP PRN PO INSOMNIA 01/01/20 15:30 01/02/20 21:29 Valsartan (Diovan) 320 mg DAILY PO 01/01/20 09:00 01/02/20 08:33 Allergies Coded Allergies: No Known Allergies (Unverified , 05/30/19) CARA SANDOVAL DO Jan 03, 2020 09:24
[2020-01-03] MEDS: hydrOXYzine 50 MG TAB PO SCH ×3 (09:39→21:27)
[2020-01-03] MEDS: DULoxetine 30 MG CAP (CYMBALTA) PO SCH ×2 (09:39→21:28)
[2020-01-03] MEDS: MULTIVITAMINS/MINERALS THERAP 1 TAB PO SCH (09:39)
[2020-01-03] MEDS: ASPIRIN 81 MG CHEW TABLET PO SCH (09:40)
[2020-01-03] MEDS: clonazePAM 0.5 MG TAB PO SCH ×3 (09:40→21:27)
[2020-01-03] MEDS: VALSARTAN 80 MG TAB (DIOVAN) PO SCH (09:40)
[2020-01-03] MEDS: LITHIUM CARBONATE 150 MG CAP PO SCH ×2 (09:41→21:28)
[2020-01-03] MEDS: FOLIC ACID 1 MG TAB PO SCH (09:41)
[2020-01-03] MEDS: ACETAMINOPHEN TAB 650MG DOSE (2X325MG) PO PRN (09:45)
[2020-01-03] MEDS: IBUPROFEN 400MG TAB PO PRN (15:28)
[2020-01-03 17:20] VITALS: BP 136/92
[2020-01-03] MEDS: traZODone 50 MG TAB PO PRN (21:28)
[2020-01-03] MEDS: ATORVASTATIN 20 MG TAB PO SCH (21:28)
[2020-01-04 06:57] VITALS: BP 109/56
[2020-01-04] MEDS: ASPIRIN 81 MG CHEW TABLET PO SCH (09:42)
[2020-01-04] MEDS: DULoxetine 30 MG CAP (CYMBALTA) PO SCH ×2 (09:42→21:38)
[2020-01-04] MEDS: FOLIC ACID 1 MG TAB PO SCH (09:43)
[2020-01-04] MEDS: hydrOXYzine 50 MG TAB PO SCH ×3 (09:43→21:38)
[2020-01-04] MEDS: LITHIUM CARBONATE 150 MG CAP PO SCH ×2 (09:43→21:38)
[2020-01-04] MEDS: VALSARTAN 80 MG TAB (DIOVAN) PO SCH (09:43)
[2020-01-04] MEDS: MULTIVITAMINS/MINERALS THERAP 1 TAB PO SCH (09:43)
[2020-01-04] MEDS: clonazePAM 0.5 MG TAB PO SCH ×3 (09:43→21:38)
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
[2020-01-04 15:46] VITALS: BP 116/72
[2020-01-04] MEDS: ATORVASTATIN 20 MG TAB PO SCH (21:38)
[2020-01-04] MEDS: traZODone 50 MG TAB PO PRN (21:38)
[2020-01-05 06:27] VITALS: BP 111/56
[2020-01-05] MEDS: MULTIVITAMINS/MINERALS THERAP 1 TAB PO SCH (09:12)
[2020-01-05] MEDS: FOLIC ACID 1 MG TAB PO SCH (09:12)
[2020-01-05] MEDS: ASPIRIN 81 MG CHEW TABLET PO SCH (09:12)
[2020-01-05] MEDS: clonazePAM 0.5 MG TAB PO SCH ×3 (09:12→21:12)
[2020-01-05] MEDS: LITHIUM CARBONATE 150 MG CAP PO SCH ×2 (09:12→21:12)
[2020-01-05] MEDS: DULoxetine 30 MG CAP (CYMBALTA) PO SCH ×2 (09:12→21:12)
[2020-01-05] MEDS: VALSARTAN 80 MG TAB (DIOVAN) PO SCH (09:12)
[2020-01-05] MEDS: hydrOXYzine 50 MG TAB PO SCH ×3 (09:12→21:12)
[2020-01-05] MEDS: MOM 30ML SUSPENSION UDC PO PRN (13:39)
[2020-01-05 15:33] VITALS: BP 101/63
[2020-01-05] MEDS: ACETAMINOPHEN TAB 650MG DOSE (2X325MG) PO PRN (15:47)
[2020-01-05] MEDS: valACYclovir HCL 500 MG TAB PO SCH (15:47)
[2020-01-05] MEDS: traZODone 50 MG TAB PO PRN (21:12)
[2020-01-05] MEDS: ATORVASTATIN 20 MG TAB PO SCH (21:12)
[2020-01-06 06:38] VITALS: BP 119/85
[2020-01-06] MEDS: VALSARTAN 80 MG TAB (DIOVAN) PO SCH (08:43)
[2020-01-06] MEDS: valACYclovir HCL 500 MG TAB PO SCH (08:43)
[2020-01-06] MEDS: LITHIUM CARBONATE 150 MG CAP PO SCH ×2 (08:44→21:05)
[2020-01-06] MEDS: DULoxetine 30 MG CAP (CYMBALTA) PO SCH ×2 (08:44→21:04)
[2020-01-06] MEDS: FOLIC ACID 1 MG TAB PO SCH (08:44)
[2020-01-06] MEDS: hydrOXYzine 50 MG TAB PO SCH ×3 (08:44→21:05)
[2020-01-06] MEDS: ASPIRIN 81 MG CHEW TABLET PO SCH (08:44)
[2020-01-06] MEDS: MULTIVITAMINS/MINERALS THERAP 1 TAB PO SCH (08:44)
[2020-01-06] MEDS: clonazePAM 0.5 MG TAB PO SCH ×3 (08:44→21:05)
[2020-01-06] MEDS: MOM 30ML SUSPENSION UDC PO PRN (14:30)
[2020-01-06 15:57] VITALS: BP 96/53
[2020-01-06] MEDS: traZODone 50 MG TAB PO PRN (21:05)
[2020-01-06] MEDS: ATORVASTATIN 20 MG TAB PO SCH (21:05)
[2020-01-07 06:43] VITALS: BP 120/87
[2020-01-07] MEDS: VALSARTAN 80 MG TAB (DIOVAN) PO SCH (08:56)
[2020-01-07] MEDS: LITHIUM CARBONATE 150 MG CAP PO SCH ×2 (08:56→20:38)
[2020-01-07] MEDS: hydrOXYzine 50 MG TAB PO SCH ×3 (08:57→20:38)
[2020-01-07] MEDS: valACYclovir HCL 500 MG TAB PO SCH (08:57)
[2020-01-07] MEDS: FOLIC ACID 1 MG TAB PO SCH (08:57)
[2020-01-07] MEDS: DULoxetine 30 MG CAP (CYMBALTA) PO SCH ×2 (08:57→20:37)
[2020-01-07] MEDS: ASPIRIN 81 MG CHEW TABLET PO SCH (08:57)
[2020-01-07] MEDS: MULTIVITAMINS/MINERALS THERAP 1 TAB PO SCH (08:57)
[2020-01-07] MEDS: clonazePAM 0.5 MG TAB PO SCH ×3 (08:57→20:37)
[2020-01-07 16:41] VITALS: BP 100/58
[2020-01-07] MEDS: traZODone 50 MG TAB PO PRN (20:38)
[2020-01-07] MEDS: ATORVASTATIN 20 MG TAB PO SCH (20:38)
[2020-01-07] MEDS: IBUPROFEN 400MG TAB PO PRN (20:39)
[2020-01-08 06:21] VITALS: BP 131/64
[2020-01-08] MEDS: LITHIUM CARBONATE 150 MG CAP PO SCH ×2 (09:18→20:16)
[2020-01-08] MEDS: hydrOXYzine 50 MG TAB PO SCH ×3 (09:18→20:17)
[2020-01-08] MEDS: DULoxetine 30 MG CAP (CYMBALTA) PO SCH ×2 (09:18→20:16)
[2020-01-08] MEDS: FOLIC ACID 1 MG TAB PO SCH (09:18)
[2020-01-08] MEDS: valACYclovir HCL 500 MG TAB PO SCH (09:18)
[2020-01-08] MEDS: clonazePAM 0.5 MG TAB PO SCH ×3 (09:18→20:16)
[2020-01-08] MEDS: ASPIRIN 81 MG CHEW TABLET PO SCH (09:18)
[2020-01-08] MEDS: MULTIVITAMINS/MINERALS THERAP 1 TAB PO SCH (09:18)
[2020-01-08] MEDS: VALSARTAN 80 MG TAB (DIOVAN) PO SCH (09:19)
[2020-01-08] MEDS: IBUPROFEN 400MG TAB PO PRN (11:25)
[2020-01-08 16:36] VITALS: BP 147/71
[2020-01-08] MEDS: ATORVASTATIN 20 MG TAB PO SCH (20:16)
[2020-01-08] MEDS: traZODone 50 MG TAB PO PRN (20:17)
[2020-01-09 06:30] VITALS: BP 123/90
--- NOTE | 2020-01-09 07:38 | MHIPN ---
DATE: 01/08/2020 VITAL SIGNS: Blood pressure 147/71, pulse 96, temperature 97.6. This is an assessment being done by telemedicine video, during this virus pandemic. She is seen in the presence of staff. CHIEF COMPLAINT: Says feels tired. SUBJECTIVE: Seen for followup. Indicates has been feeling somewhat tired today, had slept reasonably well. Indicates has been trying to contact the place where her car is, a yard, in [place]. Says plans to go there after she is discharged, and wants to arrange to pick it up, and eventually go to [place], and she says she will get an apartment. She says she has looked for an apartment on her phone. Has her daughter near [place], but they do not get along. Says has been feeling considerably better since being admitted, but has a hard time elaborating. MENTAL STATUS EXAMINATION: Neat. Cooperative. No agitation. No psychomotor retardation. Appears mildly tired, with a restricted affect. She is coherent. Denies any thoughts of harming herself or anyone else. No overt delusions or ideations are elicited. Cognition grossly intact. Judgment and insight remain compromised. ASSESSMENT: Bipolar disorder, current episode depressed. The possibility of psychotic features, as indicated in recent previous assessments, is considered. PLAN: Continue current care, observations and medications. Continue encouraging her to participate in activities in the unit. Insight is poor and plans that she seems to have at the moment did not appear very solid or realistic, and increase her chances quite considerably of readmission or not doing well. Further recommendations will be made depending on the clinical picture.
[2020-01-09] MEDS: LITHIUM CARBONATE 150 MG CAP PO SCH ×2 (08:17→20:31)
[2020-01-09] MEDS: VALSARTAN 80 MG TAB (DIOVAN) PO SCH (08:17)
[2020-01-09] MEDS: valACYclovir HCL 500 MG TAB PO SCH (08:17)
[2020-01-09] MEDS: hydrOXYzine 50 MG TAB PO SCH ×3 (08:18→20:31)
[2020-01-09] MEDS: IBUPROFEN 400MG TAB PO PRN (08:18)
[2020-01-09] MEDS: FOLIC ACID 1 MG TAB PO SCH (08:18)
[2020-01-09] MEDS: MULTIVITAMINS/MINERALS THERAP 1 TAB PO SCH (08:18)
[2020-01-09] MEDS: DULoxetine 30 MG CAP (CYMBALTA) PO SCH ×2 (08:18→20:31)
[2020-01-09] MEDS: clonazePAM 0.5 MG TAB PO SCH ×3 (08:18→20:31)
[2020-01-09] MEDS: ASPIRIN 81 MG CHEW TABLET PO SCH (08:18)
--- NOTE | 2020-01-09 09:24 | MHIPNPDOC ---
[facility] Progress Note Progress Note DATE OF SERVICE: 01/09/20 HPI: Rayna presents today for concerns regarding a follow-up. She has not been discharged. The patient is working on a discharge plan after the original plan o f going to rehab has changed. She had mentioned wanting to go to [place] the last time and mentions it again this time. Rayna has written a plan for after her discharge: to take a taxi to the [employer], go to [facility] and get a welfare officer, go to her house and pickling machine operator a few things and then take a taxi to [place] to pickling machine operator her car and then look for an apartment downtown. Her plan states that next she would go to the bank and change her address after finding an apartment, and to get up and walk her dog. MEDICATIONS: Rayna is currently taking [place], Clonazepam, and Duloxetine. She complains about having dry mouth but is otherwise okay. Objective Behavior: Engaged. Pleasant. Cooperative with good eye contact. Speech: Spontaneous and fluid. Normal rate. Normal volume. Thought Form: Linear and goal directed. Thought Content: No thoughts of self harm. No evidence of delusions. No evidence of suicidal ideation. No evidence of aggressive or homicidal ideation. Perception: No perceptual abnormalities noted. Insight: Presents an organized plan. good insight into symptoms and treatment options. Assessment F31.4 Bipolar disorder, current episode depressed, severe, without psychotic features Plan Rayna has bipolar depression, in remission, with no signs of psychotic thought processes. She will continue her current medications and work towards discharge. Rayna appears to be doing quite well and her current medications seem to be working well for her. She does not have any significant signs other than some mild, dry mouth. Her lithium levels are therapeutic, she's not demonstrating any psychotic thought processes and is planning discharge. Review of her chart suggests she has been generally cooperative with staff and demonstrates no need for further involuntary treatment. If she can cooperate with the media planner, we will discharge as she has been there for about two weeks made fair progress. Vital Signs Vital Signs Date Time Temp Pulse Resp B/P (MAP) Pulse Ox O2 Delivery O2 Flow Rate FiO2 01/09/20 08:17 112/77 01/09/20 06:30 96.9 85 16 Room Air 01/07/20 06:43 95 Current Medications Current Medications Medications (Trade) Dose Ordered Sig/Ellyn Route PRN Reason Start Time Stop Time Status Last Admin Dose Admin Acetaminophen (Tylenol Tab) 650 mg Q6HP PRN PO HEADACHE or DISCOMFORT 12/24/19 17:00 01/05/20 15:47 Aspirin (Aspirin Chewable) 81 mg DAILY PO 12/25/19 09:00 01/09/20 08:18 Atorvastatin Calcium (Lipitor) 40 mg QHS PO 12/24/19 21:00 01/08/20 20:16 Clonazepam (KlonoPIN) 0.5 mg TID PO 01/01/20 16:00 01/09/20 08:18 Clonazepam (KlonoPIN) 2 mg TID PO 12/24/19 16:00 12/25/19 10:47 DC 12/25/19 09:12 Duloxetine HCl (Cymbalta) 60 mg BID PO 12/24/19 21:00 01/09/20 08:18 Folic Acid (Folic Acid) 1 mg DAILY PO 12/25/19 09:00 01/09/20 08:18 Home Med (Med Rec Complete!) ASDIRECTED XX 12/24/19 14:15 12/24/19 14:06 DC Hydrochlorothiazide (Hydrodiuril) 25 mg DAILY PO 01/01/20 09:00 01/09/20 08:19 Hydroxyzine HCl (Atarax) 50 mg TID PO 12/30/19 16:00 01/09/20 08:18 Hydroxyzine HCl (Atarax) 50 mg TIDP PRN PO ANXIETY/AGITATION 12/27/19 18:45 12/30/19 15:16 DC 12/30/19 08:28 Ibuprofen (Advil) 400 mg Q6HP PRN PO PAIN 12/24/19 17:00 01/09/20 08:18 [place] Carbonate ([place] Carbonate) 300 mg BID PO 12/24/19 21:00 01/01/20 15:33 DC 01/01/20 08:33 [place] Carbonate ([place] Carbonate) 450 mg BID PO 01/01/20 21:00 01/09/20 08:17 Lorazepam (Ativan) 2 mg ASDIRECTED PRN PO SEE PROTOCOL 12/25/19 11:00 12/28/19 20:04 DC 12/26/19 20:32 Magnesium Hydroxide (Milk Of Magnesia) 30 ml DAILYPRN PRN PO CONSTIPATION 12/24/19 17:00 01/06/20 14:30 Miscellaneous (Unresolved Clarification Entry) SEE LABEL COMMENTS DAILY XX 01/09/20 09:00 Multivitamins (Theragram-M) 1 tab DAILY PO 12/25/19 09:00 01/09/20 08:18 Thiamine HCl (Thiamine HCl) 100 mg BID PO 12/25/19 09:00 12/27/19 21:01 DC 12/27/19 21:47 Trazodone HCl (Desyrel) 50 mg QHSP PRN PO INSOMNIA 12/24/19 17:00 01/01/20 15:33 DC 12/31/19 20:59 Trazodone HCl (Desyrel) 150 mg QHSP PRN PO INSOMNIA 01/01/20 15:30 01/08/20 20:17 Valacyclovir HCl (Valtrex) 1,000 mg DAILY PO 01/05/20 09:00 01/09/20 18:00 01/09/20 08:17 Valsartan (Diovan) 320 mg DAILY PO 01/01/20 09:00 01/09/20 08:17 Allergies Coded Allergies: No Known Allergies (Unverified , 05/30/19) CARA SANDOVAL DO Jan 09, 2020 09:24
[2020-01-09 16:29] VITALS: BP 102/63
[2020-01-09] MEDS: ATORVASTATIN 20 MG TAB PO SCH (20:31)
[2020-01-09] MEDS: traZODone 50 MG TAB PO PRN (20:33)
[2020-01-10 06:23] VITALS: BP 127/82
[2020-01-10] MEDS: ASPIRIN 81 MG CHEW TABLET PO SCH (09:06)
[2020-01-10] MEDS: LITHIUM CARBONATE 150 MG CAP PO SCH ×2 (09:06→21:30)
[2020-01-10] MEDS: MULTIVITAMINS/MINERALS THERAP 1 TAB PO SCH (09:07)
[2020-01-10] MEDS: clonazePAM 0.5 MG TAB PO SCH ×3 (09:07→21:28)
[2020-01-10] MEDS: DULoxetine 30 MG CAP (CYMBALTA) PO SCH ×2 (09:07→21:31)
[2020-01-10] MEDS: VALSARTAN 80 MG TAB (DIOVAN) PO SCH (09:07)
[2020-01-10] MEDS: hydrOXYzine 50 MG TAB PO SCH ×3 (09:07→21:30)
[2020-01-10] MEDS: FOLIC ACID 1 MG TAB PO SCH (09:07)
[2020-01-10] MEDS: ACETAMINOPHEN TAB 650MG DOSE (2X325MG) PO PRN (09:08)
[2020-01-10 17:30] VITALS: BP 131/86
[2020-01-10] MEDS ORDERED: HYDR50TA70 PO (17:49)
[2020-01-10] MEDS ORDERED: LITH150C PO (17:49)
[2020-01-10] MEDS ORDERED: TRAZ-252 PO (17:49)
[2020-01-10] MEDS ORDERED: CLON0.5T2 PO (17:49)
--- NOTE | 2020-01-10 18:07 | MHIPNPDOC ---
[facility] Progress Note Progress Note DATE OF SERVICE: 01/10/20 HISTORY: As per previous notes: " Patient is a 54 -year-old , female, who presented to [facility] reporting depression after being asked to leave her previous housing situation, she reports that she was upset and contingently suicidal if she was sent to [facility] housing. Her symptoms of depression appear highly atypical and inconsistent. The patient was told that the housing situation would likely not be able to be addressed, she was admitted out of abundance caution" VITAL SIGNS: See below. NEW TEST RESULTS: See below. CURRENT MEDICATIONS: See below. MENTAL STATUS EXAMINATION: Patient is a 54-year old female, who is alert, cooperative, good hygiene and grooming. Speech: Is slow, normal rate, rhythm and volume. Spontaneous and fluent Language skills are intact. Thought processes including: linear and coherent, goal directed. Thought content: negative for suicidal ideation, plans or intents. She denies homicidal ideation too. Denies paranoid, bizarre or grandiose delusions. She denies anxious/depressed thoughts. She is goal directed, wants to go to [place] to start a new life. Description of associations: intact. Description of abnormal or psychotic thoughts: She denies TAV hallucinations, denies thought delusions, she is not responding to internal stimuli. Judgment: improving. Insight: improving. Orientation: x 3. Recent and remote memory: intact. Attention span and concentration: good, she is not easily distracted. Language: adequate. Fund of knowledge: average. Mood: euthymic. Affect: congruent with mood, mildly constricted. DIAGNOSES: Bipolar disorder type 1, in remission Alcohol abuse disorder ASSESSMENT: The patient is not suicidal, homicidal or psychotic at this time. she is not in imminent danger to herself or others. She has a safety plan in place which is to go to the place she was living before she came to the hospital by taxi, pick pulling machine tender her things, go to [place] to pick pulling machine tender her car, that is in a car yard and go to [place] where she plans to rent an apartment. She says she would like to stay downtown [place] because it's an urban area and she would be surrounded by people and that is what she wants because it would help her to not feel lonely. She says she will go to her previous providers for mental health and physical health follow up. she has requested her scripts to go to a [facility] pharmacy in [place]. She says her son lives about 20 miles away from [facility] and she has a good relationship with him, so, she knos he would be able to assit her if she would have an emergency. She says she knows she can call 911 or go to the nearest Emergency Room in case of an emergency. MANAGEMENT PLAN: Discharge tomorrow morning if she is stable at the time of evaluation tomorrow morning TIME SPENT: 20 minutes. Vital Signs Vital Signs Date Time Temp Pulse Resp B/P (MAP) Pulse Ox O2 Delivery O2 Flow Rate FiO2 01/10/20 06:23 98.5 84 16 127/82 (97) Room Air 01/07/20 06:43 95 Current Medications Current Medications Medications (Trade) Dose Ordered Sig/Ellyn Route PRN Reason Start Time Stop Time Status Last Admin Dose Admin Acetaminophen (Tylenol Tab) 650 mg Q6HP PRN PO HEADACHE or DISCOMFORT 12/24/19 17:00 01/10/20 09:08 Aspirin (Aspirin Chewable) 81 mg DAILY PO 12/25/19 09:00 01/10/20 09:06 Atorvastatin Calcium (Lipitor) 40 mg QHS PO 12/24/19 21:00 01/09/20 20:31 Clonazepam (KlonoPIN) 0.5 mg TID PO 01/01/20 16:00 01/10/20 15:15 Clonazepam (KlonoPIN) 2 mg TID PO 12/24/19 16:00 12/25/19 10:47 DC 12/25/19 09:12 Duloxetine HCl (Cymbalta) 60 mg BID PO 12/24/19 21:00 01/10/20 09:07 Folic Acid (Folic Acid) 1 mg DAILY PO 12/25/19 09:00 01/10/20 09:07 Home Med (Med Rec Complete!) ASDIRECTED XX 12/24/19 14:15 12/24/19 14:06 DC Hydrochlorothiazide (Hydrodiuril) 25 mg DAILY PO 01/01/20 09:00 01/10/20 09:07 Hydroxyzine HCl (Atarax) 50 mg TID PO 12/30/19 16:00 01/10/20 15:15 Hydroxyzine HCl (Atarax) 50 mg TIDP PRN PO ANXIETY/AGITATION 12/27/19 18:45 12/30/19 15:16 DC 12/30/19 08:28 Ibuprofen (Advil) 400 mg Q6HP PRN PO PAIN 12/24/19 17:00 01/09/20 08:18 [place] Carbonate ([place] Carbonate) 300 mg BID PO 12/24/19 21:00 01/01/20 15:33 DC 01/01/20 08:33 [place] Carbonate ([place] Carbonate) 450 mg BID PO 01/01/20 21:00 01/10/20 09:06 Lorazepam (Ativan) 2 mg ASDIRECTED PRN PO SEE PROTOCOL 12/25/19 11:00 12/28/19 20:04 DC 12/26/19 20:32 Magnesium Hydroxide (Milk Of Magnesia) 30 ml DAILYPRN PRN PO CONSTIPATION 12/24/19 17:00 01/06/20 14:30 Miscellaneous (Unresolved Clarification Entry) SEE LABEL COMMENTS DAILY XX 01/09/20 09:00 01/09/20 09:30 DC Multivitamins (Theragram-M) 1 tab DAILY PO 12/25/19 09:00 01/10/20 09:07 Thiamine HCl (Thiamine HCl) 100 mg BID PO 12/25/19 09:00 12/27/19 21:01 DC 12/27/19 21:47 Trazodone HCl (Desyrel) 50 mg QHSP PRN PO INSOMNIA 12/24/19 17:00 01/01/20 15:33 DC 12/31/19 20:59 Trazodone HCl (Desyrel) 150 mg QHSP PRN PO INSOMNIA 01/01/20 15:30 01/09/20 20:33 Valacyclovir HCl (Valtrex) 1,000 mg DAILY PO 01/05/20 09:00 01/09/20 18:00 DC 01/09/20 08:17 Valsartan (Diovan) 320 mg DAILY PO 01/01/20 09:00 01/10/20 09:07 Allergies Coded Allergies: No Known Allergies (Unverified , 05/30/19) REE VERA MD Jan 10, 2020 17:58
[2020-01-10] MEDS: ATORVASTATIN 20 MG TAB PO SCH (21:28)
[2020-01-10] MEDS: traZODone 50 MG TAB PO PRN (21:31)
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
[2020-01-11 06:47] VITALS: BP 127/70
[2020-01-11 08:18] VITALS: BP 125/72
[2020-01-11] MEDS: MULTIVITAMINS/MINERALS THERAP 1 TAB PO SCH (08:18)
[2020-01-11] MEDS: clonazePAM 0.5 MG TAB PO SCH (08:18)
[2020-01-11] MEDS: hydrOXYzine 50 MG TAB PO SCH (08:18)
[2020-01-11] MEDS: VALSARTAN 80 MG TAB (DIOVAN) PO SCH (08:18)
[2020-01-11] MEDS: LITHIUM CARBONATE 150 MG CAP PO SCH (08:18)
[2020-01-11] MEDS: FOLIC ACID 1 MG TAB PO SCH (08:19)
[2020-01-11] MEDS: ASPIRIN 81 MG CHEW TABLET PO SCH (08:19)
[2020-01-11] MEDS: DULoxetine 30 MG CAP (CYMBALTA) PO SCH (08:19)
--- NOTE | 2020-01-14 17:18 | MHDSPDOC ---
[facility] Discharge Summary Discharge Summary DATE OF ADMISSION: Dec 24, 2019 at 16:55 DATE OF DISCHARGE: Jan 11, 2020 at 13:09 DISCHARGE DIAGNOSES: Bipolar disorder type 1, in remission Alcohol abuse disorder REASON FOR ADMISSION: HISTORY: As per previous notes: " Patient is a 54 -year-old , female, who presented to [facility] reporting depression after being asked to leave her previous housing situation, she reports that she was upset and contingently suicidal if she was sent to [facility] housing. Her symptoms of depression appear highly atypical and inconsistent. The patient was told that the housing situation would likely not be able to be addressed, she was admitted out of abundance caution" VITAL SIGNS: See below. NEW TEST RESULTS: See below. CURRENT MEDICATIONS: See below. ASSESSMENT: The patient is not suicidal, homicidal or psychotic at this time. she is not in imminent danger to herself or others. She has a safety plan in place which is to go to the place she was living before she came to the hospital by taxi, fruit or nut picker her things, go to [place] to fruit or nut picker her car, that is in a car yard and go to [place] where she plans to rent an apartment. [facility] and she would be surrounded by people and that is what she wants because it would help her to not feel lonely. She says she will go to her previous providers for mental health and physical health follow up. she has requested her scripts to go to a [facility] pharmacy in [place]. She says her son lives about 20 miles away from [facility] and she has a good relationship with him, so, she knos he would be able to assit her if she would have an emergency. She says she knows she can call 911 or go to the nearest Emergency Room in case of an emergency. MANAGEMENT PLAN: Discharge tomorrow morning if she is stable at the time of evaluation tomorrow morning CONSULTANTS INVOLVED: None TREATMENT AND PROGRESS ON THE UNIT : The patient was admitted after she reported suicidal ideatioon because she was asked to leave the house she was sharing with a relative. The alternative she had at that time was to go to [facility] and she resented to the ED saying she felt suicidal as a result of her housing situation. She has been admitted to [facility] before. Her lithium dose was increased to 450 mgs PO daily and her Klonopin was decr eased to 1.5 mgs PO TID. She did have a good response to treatment and she decided to go back to [place] where she had left her car and from there, go to [place] where she would look fro an apartment. She said that she already had been looking for an apartment in that area before she decompensated and came to the hospital. She mentioned she knows a Psychiatrist and a Therapist in that area with whom she can follow her OP mental health treatment and she also mentioned that her children live around that area, one of them would be about 20 miles away from [place] ( [facility] She mentioned she wanted to go to [place] because it's a big city and she would not feel alone even if she wouldn't know her neighbors at an apartment building, but she would know tht there's people around her. During her stay, she didn't report medication side effects, suicidal or homicidal thoughts. She was not psychotic at the time of her discharge. She was future orientated and she said she was looking for riojas to being discharged, she was going to take a cab to the house she had been living before, was going to pack her belongings and take the same cab to go to [place] where she would fruit or nut picker her car that was in a car yard and go to [place], where she wants to get established. HOSPITAL COURSE: as above DISCHARGE ASSESSMENT: the patient is not in danger to self or others at this time. She is not suicidal,not homicidal and not psychotic. She is not responding to internal stimuli. She is future orientated, is optimistic, has plans for the future ( please read above). She denies suicidal ideation, suicidal plans or intents. She denies homicidal ideation and thought delusions. She denies TAV hallucinations, she is not responding to internal stimuli, she is not violent, not aggressive, not impulsive at this time. MENTAL STATUS EXAMINATION ON DISCHARGE: Patient is a 54-year old female, who is alert, cooperative, good hygiene and grooming. Speech: Is slow, normal rate, rhythm and volume. Spontaneous and fluent Language skills are intact. Thought processes including: linear and coherent, goal directed. Thought content: negative for suicidal ideation, plans or intents. She denies homicidal ideation too. Denies paranoid, bizarre or grandiose delusions. She denies anxious/depressed thoughts. She is goal directed, wants to go to [place] to start a new life. Description of associations: intact. Description of abnormal or psychotic thoughts: She denies TAV hallucinations, denies thought delusions, she is not responding to internal stimuli. Judgment: improving. Insight: improved Orientation: x 3. Recent and remote memory: intact. Attention span and concentration: good Fund of knowledge: average. Mood: euthymic. Affect: congruent with mood, appropriate to mood MEDICATIONS ON DISCHARGE: Scheduled Aspirin (Aspirin) 81 Mg Tab.chew, 81 MG PO DAILY, (Reported) Atorvastatin Calcium (Atorvastatin Calcium) 40 Mg Tablet, 40 MG PO QHS, (Reported) Clonazepam (Clonazepam) 0.5 Mg Tablet, 0.5 MG PO TID for anxiety, #21 Duloxetine Hcl (Duloxetine HCl) 60 Mg Capsule.dr, 60 MG PO BID, (Reported) Hydroxyzine HCl (Hydroxyzine HCl) 50 Mg Tablet, 50 MG PO TID for anxiety, #21 [place] Carbonate ([place] Carbonate) 150 Mg Capsule, 450 MG PO BID for mood, #42 Valsartan/Hydrochlorothiazide (Diovan Hct 320-25 mg Tablet) 1 Each Tablet, 1 TAB PO DAILY, (Reported) Scheduled PRN Trazodone HCl (Trazodone HCl) 50 Mg Tablet, 150 MG PO QHSP PRN for INSOMNIA, #21 PLAN/FOLLOWUP ARRANGEMENTS: * Medical * Established With This Provider No * Additional information PATIENT REFUSED MEDICAL FOLLOW UP AND SAID SHE WOULD MAKE HER OWN APPOINTMENT. PATIENT WAS ADVISED IF ANY ISSUE TO GO TO A [facility] CARE OR ER FOR MEDICAL TREATMENT. Follow Up Care Education Label * Mental Health Appt 1 * Mental Health DR. INGRID WILLIAM * Established With This Provider No HAS NOT BEEN SEEN IN ONE YEAR * Therapist DR. INGRID WILLIAM * Address of Clinic or Practice [address] [place], [place] [address] [place] * * Additional information PATIENT WAS GIVEN PACKET THAT MUST BE MAILED. PACKET WILL BE MAILED TODAY AND SOON THEY RECIEVE THEY WILL CONTACT HER WITH APPOINTMENT. The amount of time spent in the coordination of care for this patient was approximately 30 minutes. Vital Signs/I&Os Vital Signs Date Time Temp Pulse Resp B/P (MAP) Pulse Ox O2 Delivery O2 Flow Rate FiO2 01/11/20 08:18 125/72 01/11/20 06:47 97.9 88 14 95 Room Air Medications Scheduled Aspirin (Aspirin) 81 Mg Tab.chew, 81 MG PO DAILY, (Reported) Atorvastatin Calcium (Atorvastatin Calcium) 40 Mg Tablet, 40 MG PO QHS, (Reported) Clonazepam (Clonazepam) 0.5 Mg Tablet, 0.5 MG PO TID for anxiety, #21 Duloxetine Hcl (Duloxetine HCl) 60 Mg Capsule.dr, 60 MG PO BID, (Reported) Hydroxyzine HCl (Hydroxyzine HCl) 50 Mg Tablet, 50 MG PO TID for anxiety, #21 [place] Carbonate ([place] Carbonate) 150 Mg Capsule, 450 MG PO BID for mood, #42 Valsartan/Hydrochlorothiazide (Diovan Hct 320-25 mg Tablet) 1 Each Tablet, 1 TAB PO DAILY, (Reported) Scheduled PRN Trazodone HCl (Trazodone HCl) 50 Mg Tablet, 150 MG PO QHSP PRN for INSOMNIA, #21 Allergies Coded Allergies: No Known Allergies (Unverified , 05/30/19) REE VERA MD Jan 14, 2020 17:18
== END 2020-01-11 13:09 | disposition home or self-care (01) | DRG 885 ==
LOC: M ED 06:51 → M ED INP 16:55 → M ED 18:02 → M PSY 18:09
PROVIDERS: ADMIT Psychiatry & Neurology Addiction Medicine; ATTEND Psychiatry & Neurology Addiction Medicine
DX: F31.9 Bipolar disorder, unspecified (principal); F43.20 Adjustment disorder, unspecified; F10.20 Alcohol dependence, uncomplicated; E78.5 Hyperlipidemia, unspecified; G50.0 Trigeminal neuralgia; I10 Essential (primary) hypertension; Z79.82 Long term (current) use of aspirin; Z79.899 Other long term (current) drug therapy; Z86.73 Personal history of transient ischemic attack (TIA), and cerebral infarction without residual deficits; Z76.5 Malingerer [conscious simulation]; Z59.0 Homelessness